=== PATIENT | male | born 1955 | race Caucasian/White ===

== ENCOUNTER 2018-03-20 02:38 | Inpatient (IN) ==
--- NOTE | 2018-03-20 02:55 | Emergency Department Note ---
Disposition Clinical Impression: Altered mental status, unspecified, Osteomyelitis, Elevated serum creatinine Disposition: Admitted As Inpatient Condition: Good Fall HPI - General Chief Complaint: ED Fall Stated Complaint: head and neck pain, fall Time Seen by Provider: 03/20/18 02:47 Source: patient, EMS Mode of arrival: EMS Limitations: altered mental status Nursing Notes Reviewed: Yes Vital Signs Reviewed: Yes - History of Present Illness HPI Narrative: 62-year-old male presents via EMS from the [facility]. Patient states that he fell asleep on a couch and he must the fell, his head hurts. Patient states the top of his head that hurts. Patient is unsure of any medical history or any medications that he is on. He states that he felt fine prior to falling. EMS reports the patient was sitting on the couch and he fell forward hitting the top of his head on the ground. EMS reports that patient does have history of falls and he has care plan to have his mattress on the floor just because of that. The [facility] did not send any medical history with patient, they did not call report. Pt Subjective Complaint: fall Onset (ago): Just [employer] Fall From: other Fall Witnessed: no (Unsure) Place Fall Occurred: home Loss of Consciousness: unsure Prolonged Down Time?: unclear Symptoms Prior to Fall: none Context: unknown Quality: aching Associated symptoms (after fall): Reports: neck pain. Denies: numbness, weakness, chest pain, shortness of breath, abdominal pain, lightheaded, vertigo - Related Data Allergies Allergy/AdvReac Type Severity Reaction Status Date / Time diazepam [From Valium] Allergy Hallucinati Verified 03/20/18 02:47 ng sertraline Allergy Hallucinati Verified 03/20/18 02:47 ng Limitations: ROS unobtainable due to patients medical condition Fall PMH - Past Medical History Medical history: Reports: no medical history Psychiatric history: Reports: no psych history - Social History Smoking Status: Current every day smoker Alcohol use: Reports: none Drug use: Reports: none Physical Exam - General Limitations: no limitations General appearance: alert, in no apparent distress - Head Head exam: atraumatic, normocephalic, normal inspection, other (Pain with palpation to the entire scalp, spares face) - Eye Eye exam: Present: normal appearance, PERRL, EOMI. Absent: scleral icterus, conjunctival injection, periorbital tenderness - ENT ENT exam: mucous membranes moist - Neck Neck exam: Present: normal inspection, tenderness (With palpation to the posterior neck). Absent: meningismus - Chest Chest inspection: Present: normal inspection, symmetric chest wall rise - Neurological Exam Neurological exam: Present: alert, oriented X3, CN II-XII intact - Expanded Neurological Exam Patient oriented to: Present: person, place Motor strength - LUE: 3/5 Motor strength - RUE: 4/5 Motor strength - LLE: 4/5 Motor strength - RLE: 3/5 Coma Scale Eye Opening: Spontaneous Coma Scale Motor Response: Obeys Commands Coma Scale Verbal Response: Confused Coma Scale Total: 14 - Psychiatric Psychiatric exam: Present: normal affect, normal mood - Skin Skin exam: Present: warm, dry, intact, normal color Course Course Narrative: Nontoxic-appearing male in no acute distress. Patient arrives via EMS in a cervical collar. Patient with tenderness to his entire scalp without step-offs, contusions, abrasions. Patient does complain of tenderness to the entire scalp. No facial tenderness. Tenderness with palpation to the posterior neck, no differentiation between paraspinal lumbar tenderness of cervical spine. Respirations are easy and even. Patient is oriented to self. He is unsure where she is he stated "they brought me here". He does note that he was at the [facility] and he fell sleep sitting on the couch but he is unsure of events afterwards. Lungs are clear, heart rate regular rhythm. Abdomen is soft and nontender. Patient does have bilateral lower extremity edema. Patient is afebrile, normotensive. EKG reveals sinus rhythm with ventricular rate of 99, no old EKG for comparison. Patient is unsure about any medical history, is unsure if he is on any anticoagulants or what kind of medication he is on. Patient without any complaints other than the pain in the top of his head. Unsure if mental status is chronic in nature as this is new, we are ensure patient is on anticoagulants. We will initiate workup, CT head and cervical spine and reevaluate. RN is currently trying to get a hold [facility] to try to get some medical history. Patient without any previous visits to our emergency depart ment. RN spoke with [facility], they do not have access at this times they are unable to provide us any history, medication list. The CT nurse that the RN spoke to was unable to give any account of patient's daily activities her mentation. They did say the patient was at the [facility] for known osteomyelitis to the left foot, diabetic foot ulcer. Past Rx shows long standing history of Morphine prescriptions with 240MME per day, pt with change of provider in October 2017--possible admission to CT at this time?. Differential wide due to lack of history. Added wound culture, blood cultures, lactic acid due to known current osteomyelitis - Reevaluation(s) Reevaluation #1: X-rays in room, the x-ray tech also works at the [facility] and states that he sees this patient had a couple times a day. He does stay patient does have a long history of falls. He does state that patient is usually very alert and talkative, is usually alert and oriented 3. During her second assessment patient is able to tell us the month and year. He does seem a little bit more alert and is answering questions. He states he has been at the [facility] for 2-3 weeks, he is originally [place] 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 He does state a history of diabetes. He states bilateral lower extremity edema has been there since December. He is unsure of any other medical history. He c ontinues to state that he was feeling at his baseline prior to the fall. Patient continues to complain of head pain, he then follows this up stating that he has had had pain for greater than 10 years. The patient does seem a little bit more alert and he is able to answer questions he does still seem partially confused. Time: 03:50 Reevaluation #2: Patient has been resting quietly. He has not been in any acute distress. Labs returned with a CBC with a hemoglobin of 11.4, there is now active signs of bleeding, coagulation labs are negative. Metabolic panel shows an elevated creatinine of 1.67, decreased GFR, lactic acid is 0.9, UA without evidence of infection. Unsure patient's baseline of labs, questioning a cane I we will start slow rehydration fluids, we will start him. Antibiotic therapy for open wound. Head CT returns unremarkable. Cervical CT reveals a 170 her thyroid nodule, no further workup recommended, no cervical spine deformity. Chest x-ray reveals mild atelectasis; left foot x-ray reveals osteomyelitis of the fifth metatarsal. The plan for admission of possible history of present illness, alteration in mental status, osteomyelitis. We will treat hospitals at this time. Time: 04:34 Reevaluation #3: Spoke with hospitalist Dr. Stoner, except as to the medical floor for possible acute kidney injury, cellulitis, altered mental status. Patient care will be transitioned to the hospitalist team at this time. Patient is agreeable plan of care. Time: 05:10 Vital Signs Temperature 98.2 F 03/20/18 02:47 Pulse Rate 93 03/20/18 02:47 Respiratory Rate 16 03/20/18 02:47 Blood Pressure 188/79 03/20/18 02:47 O2 Sat by Pulse Oximetry 93 03/20/18 02:47 Temperature 98.2 F 03/20/18 02:47 Pulse Rate 88 03/20/18 04:39 Respiratory Rate 16 03/20/18 05:39 Blood Pressure 168/78 03/20/18 05:39 O2 Sat by Pulse Oximetry 95 03/20/18 04:39 Oxygen Delivery Oxygen Delivery Room Air Fall - Lab Data Lab results reviewed: Yes I reviewed the patient's lab results. Result diagrams: 03/20/18 03:31 03/20/18 03:31 Lab Results 03/20/18 03/20/18 03/20/18 Range/Units 03:31 03:31 03:31 WBC 7.6 (4.3-11.1) K/mcL RBC 3.87 L (4.19-5.50) M/mcL Hgb 11.4 L (12.9-16.9) g/dL Hct 35.4 L (37.5-50.1) % MCV 91.5 (83.0-100.0) fL MCH 29.5 (28.0-33.3) pg MCHC 32.2 (31.6-35.5) g/dL RDW 12.5 (11.5-14.5) % Plt Count 273 (140-400) K/mcL MPV 9.7 (9.4-12.4) fL Immature Gran % 0.7 (0-4) % Seg Neutrophils % 57.0 % Lymphocytes % 24.2 % Monocytes % 12.4 % Eosinophils % 5.0 % Basophils % 0.7 % Neutrophils # 4.4 (1.6-8.9) K/mcL Lymphocytes # 1.8 (0.6-4.6) K/mcL Monocytes # 0.9 (0.0-1.3) K/mcL Eosinophils # 0.4 (0.0-0.6) K/mcL Basophils # 0.1 (0.0-0.2) K/mcL PT 11.8 (9.4-12.1) Seconds INR 1.0 APTT 36.6 H (26.0-36.0) Seconds Sodium 138 (136-145) mEq/L Potassium 5.0 (3.5-5.1) mEq/L Chloride 106 (98-107) mEq/L Carbon Dioxide 25 (23-29) mEq/L BUN 43 H (8-23) mg/dL Creatinine 1.67 H (0.70-1.30) mg/dL Est GFR ( Amer) 50 L (> 60) Est GFR (Non-Af Amer) 42 L (> 60) BUN/Creatinine Ratio 26 (6-26) Glucose 236 H (70-105) mg/dL Calculated Osmolality 304 H (280-300) Lactic Acid (0.5-2.2) mmol/L Calcium 9.1 (8.6-10.3) mg/dL Urine Color (Yellow) Urine Clarity (Clear) Urine pH (5.0-8.0) pH Units Ur Specific [place] (1.010-1.025) Urine Protein (Neg-Trace) mg/dL Urine Glucose (UA) (Normal) mg/dL Urine Ketones (Negative) mg/dL Urine Blood (Negative) Urine Nitrite (Negative) Urine Bilirubin (Negative) Urine Urobilinogen (Normal) mg/dL Ur Leukocyte Esterase (Negative) Urine Microscopic RBC (0-3) per hpf Urine Microscopic WBC (0-3) per hpf Ur Squamous Epith Cells (None-Few) per lpf Urine Bacteria (None-Few) per hpf Hyaline Casts (None-Few) per lpf Ur Culture Indicated? (NO) Salicylates < 2.5 L (15.0-30.0) mg/dL Urine Opiates Screen (Psgxrt=890) ng/mL Acetaminophen < 10 L (10-20) mcg/mL Ur Barbiturates Screen (Hxxnyt=523) ng/mL Ur Phencyclidine Scrn (Cutoff=25) ng/mL Ur Amphetamines Screen (Jwutga=2553) ng/mL U Benzodiazepines Scrn (Jdfumc=801) ng/mL Urine Cocaine Screen (Cutoff= 300) ng/mL U Marijuana (THC) Screen (Cutoff = 50) ng/mL Ur Drug Screen Interp Ethyl Alcohol < 10 (Less than 10) mg/dL 03/20/18 03/20/18 03/20/18 Range/Units 03:31 03:53 03:53 WBC (4.3-11.1) K/mcL RBC (4.19-5.50) M/mcL Hgb (12.9-16.9) g/dL Hct (37.5-50.1) % MCV (83.0-100.0) fL MCH (28.0-33.3) pg MCHC (31.6-35.5) g/dL RDW (11.5-14.5) % Plt Count (140-400) K/mcL MPV (9.4-12.4) fL Immature Gran % (0-4) % Seg Neutrophils % % Lymphocytes % % Monocytes % % Eosinophils % % Basophils % % Neutrophils # (1.6-8.9) K/mcL Lymphocytes # (0.6-4.6) K/mcL Monocytes # (0.0-1.3) K/mcL Eosinophils # (0.0-0.6) K/mcL Basophils # (0.0-0.2) K/mcL PT (9.4-12.1) Seconds INR APTT (26.0-36.0) Seconds Sodium (136-145) mEq/L Potassium (3.5-5.1) mEq/L Chloride (98-107) mEq/L Carbon Dioxide (23-29) mEq/L BUN (8-23) mg/dL Creatinine (0.70-1.30) mg/dL Est GFR ( Amer) (> 60) Est GFR (Non-Af Amer) (> 60) BUN/Creatinine Ratio (6-26) Glucose (70-105) mg/dL Calculated Osmolality (280-300) Lactic Acid 0.9 (0.5-2.2) mmol/L Calcium (8.6-10.3) mg/dL Urine Color Yellow (Yellow) Urine Clarity Clear (Clear) Urine pH 7.0 (5.0-8.0) pH Units Ur Specific [place] 1.011 (1.010-1.025) Urine Protein 30 H (Neg-Trace) mg/dL Urine Glucose (UA) 100 H (Normal) mg/dL Urine Ketones Negative (Negative) mg/dL Urine Blood Negative (Negative) Urine Nitrite Negative (Negative) Urine Bilirubin Negative (Negative) Urine Urobilinogen Normal (Normal) mg/dL Ur Leukocyte Esterase Negative (Negative) Urine Microscopic RBC 0-3 (0-3) per hpf Urine Microscopic WBC 0-3 (0-3) per hpf Ur Squamous Epith Cells None Seen (None-Few) per lpf Urine Bacteria None Seen (None-Few) per hpf Hyaline Casts None Seen (None-Few) per lpf Ur Culture Indicated? NO (NO) Salicylates (15.0-30.0) mg/dL Urine Opiates Screen Positive H (Ignkgk=609) ng/mL Acetaminophen (10-20) mcg/mL Ur Barbiturates Screen Negative (Ahdowu=745) ng/mL Ur Phencyclidine Scrn Negative (Cutoff=25) ng/mL Ur Amphetamines Screen Negative (Kjwsdz=0514) ng/mL U Benzodiazepines Scrn Negative (Vxgbva=204) ng/mL Urine Cocaine Screen Negative (Cutoff= 300) ng/mL U Marijuana (THC) Screen Negative (Cutoff = 50) ng/mL Ur Drug Screen Interp See Below Ethyl Alcohol (Less than 10) mg/dL - Radiology Data Radiology results reviewed: Yes I reviewed the patient's radiology results. Cervical Spine CT 03/20/18 02:54 IMPRESSION: No acute osseous abnormality of the cervical spine. Left thyroid lobe 1 cm nodule. No additional imaging workup suggested per guidelines below. RECOMMENDATIONS: Managing Incidental Thyroid Nodule Detected at CT or MRI or US 1. Further evaluation by thyroid Ultrasound recommended for these incidental nodules: Patient Age 35 years or more - Nodule 1.5 cm in size or greater 2. Follow up thyroid ultrasound also recommend in these scenarios - Solitary nodule with high risk imaging features (locally invasive nodule or suspicious lymph nodes) - Heterogeneous, enlarged thyroid gland. - Increased uptake on PET 3. NO further imaging is recommended in the following scenarios - Any nodule not meeting above criteria. - Those patients with limited life expectancy or significant Co-morbidities. Note: These recommendations do not apply to pts. w/ increased risk for thyroid cancer or pts. with symptomatic thyroid disease. Recommendations for f/u of Incidental Thyroid Nodules (ITN) found on CT, MR, NM and Extrathyroidal US are based upon the ACR white paper and Campos 3-tiered system for managing ITNs: J Am Anai Radiol. 2015 Jun;12(2): 143-50 D/ / Levi Haynes / Levi Haynes Interpreting Provider: Levi Haynes Head CT 03/20/18 02:54 IMPRESSION: No acute intracranial abnormality. D/ / Kirit Witt MD / Kirit Witt MD Interpreting Provider: Kirit Witt MD Chest X-Ray 03/20/18 03:05 IMPRESSION: Mild bibasilar atelectasis. D/ / Lindsay Zhou MD / Lindsay Zhou MD Interpreting Provider: Lindsay Zhou MD Foot X-Ray 03/20/18 03:30 IMPRESSION: Findings are consistent with osteomyelitis involving the left 5th metatarsal head and the base of the proximal phalanx of the 5th digit. There is septic arthritis involving the left 5th MTP joint. D/ / Lindsay Zhou MD / Lindsay Zhou MD Interpreting Provider: Lindsay Zhou MD - EKG Data EKG attestation: Yes I reviewed and interpreted this EKG. Attestation Statement - Attestation Attestation: Dr Levine note: Pt seen in conjunction w/ Midlevel Giovani Dawson; Please see his charting for complete documentation; I spent face to face time w/ the pt and I agree w/ the pt's treatment and disposition; Imaging negative for acute injury; renal fxn noted; no focal neuro signs/sx; admitted to Dr Bush in stable/improved condition;
[2018-03-20 03:44] LABS: Basophils # 0.1 K/mcL (0.0-0.2); Basophils % 0.7 %; Eosinophils # 0.4 K/mcL (0.0-0.6); Hematocrit 35.4 % (37.5-50.1); Hemoglobin 11.4 g/dL (12.9-16.9); Immature Granulocytes % 0.7 % (0-4); Lymphocytes # 1.8 K/mcL (0.6-4.6); Lymphocytes % 24.2 %; Mean Corpuscular HGB Conc 32.2 g/dL (31.6-35.5); Mean Corpuscular Hemoglobin 29.5 pg (28.0-33.3); Mean Corpuscular Volume 91.5 fL (83.0-100.0); Mean Platelet Volume 9.7 fL (9.4-12.4); Monocytes # 0.9 K/mcL (0.0-1.3); Monocytes % 12.4 %; Neutrophils # 4.4 K/mcL (1.6-8.9); Platelet Count 273 K/mcL (140-400); Red Blood Count 3.87 M/mcL (4.19-5.50); Red Cell Distribution Width 12.5 % (11.5-14.5)
[2018-03-20 04:01] LABS: Prothrombin Time 11.8 Seconds (9.4-12.1)
[2018-03-20 04:03] LABS: Bilirubin,Urine Negative (Negative); Blood,Urine Negative (Negative); Clarity,Urine Clear (Clear); Color,Urine Yellow (Yellow); Glucose,Urine (UA) 100 mg/dL (Normal); Ketones,Urine Negative (Negative); Leukocyte Esterase,Urine Negative (Negative); Nitrite,Urine Negative (Negative); Protein,Urine 30 mg/dL (Neg-Trace); Specific Gravity,Urine 1.011 (1.010-1.025); Urobilinogen,Urine Normal (Normal)
[2018-03-20 04:03] LABS: Activated Partial Thrombo Time 36.6 Seconds (26.0-36.0)
[2018-03-20 04:04] LABS: Acetaminophen < 10 mcg/mL (10-20); BUN/Creatinine Ratio 26 (6-26); Blood Urea Nitrogen 43 mg/dL (8-23); Calcium 9.1 mg/dL (8.6-10.3); Carbon Dioxide 25 mEq/L (23-29); Chloride 106 mEq/L (98-107); Ethanol < 10 mg/dL (Less than 10); Glucose 236 mg/dL (70-105); Osmolality,Calculated 304 (280-300); Salicylate < 2.5 mg/dL (15.0-30.0); Sodium 138 mEq/L (136-145); eGFR For Non-African Americans 42 (> 60)
[2018-03-20 04:05] LABS: Bacteria,Urine None Seen per hpf (None-Few); Hyaline Casts,Urine None Seen per lpf (None-Few); RBC,Urine 0-3 per hpf (0-3); Squamous Epithelial Cell,Urine None Seen per lpf (None-Few); WBC,Urine 0-3 per hpf (0-3)
[2018-03-20] MEDS ORDERED: Piperacillin/Tazobactam 3.375 GM in 0.9 % Sodium Chloride Mini Bag 100 ML IVPB ONE (04:10)
[2018-03-20] MEDS ORDERED: 0.9 % Sodium Chloride 1,000 ML IVC SCH (04:15)
[2018-03-20 04:24] LABS: Amphetamine Screen,Urine Negative ng/mL (Cutoff=1000); Barbiturate Screen,Urine Negative ng/mL (Cutoff=200); Benzodiazepines Screen,Urine Negative ng/mL (Cutoff=200); Cannabinoid Screen,Urine Negative ng/mL (Cutoff = 50); Cocaine Screen,Urine Negative ng/mL (Cutoff= 300); Opiate Screen,Urine Positive ng/mL (Cutoff=300); Phencyclidine Screen,Urine Negative ng/mL (Cutoff=25)
[2018-03-20] MEDS ORDERED: D5% in Water 1,000 ML IVC PRN (05:55)
[2018-03-20] MEDS ORDERED: Acetaminophen 325 MG TABLET PO PRN (05:55)
[2018-03-20] MEDS ORDERED: Dextrose Gel 15 GM/37.5 ML TUBE PO PRN ×2 (05:55)
[2018-03-20] MEDS ORDERED: Naloxone 0.4 MG/ML INJ IVP PRN (05:55)
[2018-03-20] MEDS ORDERED: *HR* Dextrose 50 % in Water (Syg) 50 ML SYRINGE IVP PRN (05:55)
--- NOTE | 2018-03-20 06:10 | Internal Med History&Physical ---
Date of Encounter: 03/20/18 Time of Encounter: 05:40 Internal Medicine - H&P: HPI Chief complaint: s/p fall Admitted From: Emergency Dept Plans for Post Hospital Care: Transfer Other History of present illness: Mr. Callahan is a 62 year old male who was transferred from the [facility] by EMS after a fall and possibly injuring himself on the inpatient unit. There were no records sent with patient and patient is confused, disoriented, and somnolent. As such, essentially no [facility]. The ER staff nurse contacted the [facility] asking for more information, medication list, and any pertinent medical records. Unfortunately, their computers are down at the [facility], and they were unable to provide any information other than the fact that he was admitted for diabetic foot ulcer and osteomyelitis of his foot. He also reportedly was on chronic opiate pain meds but no med list was available due to their computers being down. In the ER, patient had imaging and clearance of the C-spine. CT of the head was negative. Routine labs were performed, and he was admitted to hospital service for further workup and care of his syncope/fall/osteomyelitis of his foot. Upon my assessment of the patient in the ER, patient is somnolent but easily arousable. He is oriented to self only and occasionally to place. He does not know why he is here. He does not know why he was at the [facility]. He does admit to having diabetes. I can obtain no further information from him. He is not aware of time, date, season, or situation. I am unsure if this is his baseline or altered. Past Med Surg Social Fam HX - Past Medical History Source: other (very limited information from discussion with ER staff) Medical history: diabetes Additional medical history: unknown - Past Surgical History Surgical History: other (foot surgery; unknown other surgeries) - Social History Smoking Status: Current every day smoker Smokeless Tobacco Status: No Alcohol use: none Drug use: none - Family History Mother History Unknown: Yes Father History Unknown: Yes Internal Medicine - H&P: Meds Allergy/AdvReac Type Severity Reaction Status Date / Time diazepam [From Valium] Allergy Hallucinati Verified 03/20/18 02:47 ng sertraline Allergy Hallucinati Verified 03/20/18 02:47 ng ROS unobtainable: due to mental status - Constitutional Vitals: Temp Pulse Resp BP Pulse Ox 98.2 F 88 16 168/78 95 03/20/18 02:47 03/20/18 04:39 03/20/18 05:39 03/20/18 05:39 03/20/18 04:39 General appearance: Present: A&O X 1, disheveled Exam: somnolent, easily arousable, oriented to self only - Head Head exam: Present: atraumatic, normal inspection Additional comments: no palpable crepitus, pain, or noticeable scalp lesion - Eye Eye exam: Present: EOMI, PERRL. Absent: scleral icterus Pupils: Present: normal accommodation - ENT ENT exam: Present: mucous membranes dry, normal exam, normal oropharynx - Neck Neck exam general surgery: Present: full ROM, supple. Absent: tenderness, nuchal rigidity, thyromegaly - Respiratory Respiratory exam: Present: rhonchi. Absent: chest wall tenderness, rales, respiratory distress, wheezes, tachypnea - Cardiovascular Cardiovascular exam: Present: RRR, +S1, +S2. Absent: diastolic murmur, systolic murmur - GI/Abdominal GI/Abdominal exam: Present: normal bowel sounds, soft. Absent: guarding, hepatomegaly, mass, rebound, splenomegaly, tenderness - Extremities Exam Extremities exam: Present: normal capillary refill, warm, radial pulses palpable and symmetrical. Absent: calf tenderness, joint swelling, pedal edema, tenderness Additional comments: left foot ulcer/lesion dressed and wrapped - Back Exam Back exam: Absent: CVA tenderness (L), CVA tenderness (R) - Neurological Exam Neurological exam: Present: altered, no focal deficits, strengths equal and symetr throughout Additional comments: somnolent but responds appropriately; oriented to self only though - Psychiatric Psychiatric exam: Present: flat affect - Skin Skin exam: Present: dry, intact, warm Internal Med - H&P Results - Labs CBC & Chem 7: 03/20/18 03:31 03/20/18 03:31 Labs: Short CBC 03/20/18 Range/Units 03:31 WBC 7.6 (4.3-11.1) K/mcL Hgb 11.4 L (12.9-16.9) g/dL Hct 35.4 L (37.5-50.1) % Plt Count 273 (140-400) K/mcL Neutrophils # 4.4 (1.6-8.9) K/mcL BMP 03/20/18 03:31 Sodium 138 Potassium 5.0 Chloride 106 Carbon Dioxide 25 BUN 43 H Creatinine 1.67 H Glucose 236 H Calcium 9.1 Urine 03/20/18 Range/Units 03:53 Urine Color Yellow (Yellow) Urine Clarity Clear (Clear) Urine pH 7.0 (5.0-8.0) pH Units Ur Specific [place] 1.011 (1.010-1.025) Urine Protein 30 H (Neg-Trace) mg/dL Urine Glucose (UA) 100 H (Normal) mg/dL - Impressions ITS Impressions Cervical Spine CT 03/20/18 02:54 IMPRESSION: No acute osseous abnormality of the cervical spine. Left thyroid lobe 1 cm nodule. No additional imaging workup suggested per guidelines below. RECOMMENDATIONS: Managing Incidental Thyroid Nodule Detected at CT or MRI or US 1. Further evaluation by thyroid Ultrasound recommended for these incidental nodules: Patient Age 35 years or more - Nodule 1.5 cm in size or greater 2. Follow up thyroid ultrasound also recommend in these scenarios - Solitary nodule with high risk imaging features (locally invasive nodule or suspicious lymph nodes) - Heterogeneous, enlarged thyroid gland. - Increased uptake on PET 3. NO further imaging is recommended in the following scenarios - Any nodule not meeting above criteria. - Those patients with limited life expectancy or significant Co-morbidities. Note: These recommendations do not apply to pts. w/ increased risk for thyroid cancer or pts. with symptomatic thyroid disease. Recommendations for f/u of Incidental Thyroid Nodules (ITN) found on CT, MR, NM and Extrathyroidal US are based upon the ACR white paper and Campos 3-tiered system for managing ITNs: J Am Anai Radiol. 2015 Jun;12(2): 143-50 D/ / Levi Haynes / Levi Haynes Interpreting Provider: Levi Haynes Head CT 03/20/18 02:54 IMPRESSION: No acute intracranial abnormality. D/ / Kirit Witt MD / Kirit Witt MD Interpreting Provider: Kirit Witt MD Chest X-Ray 03/20/18 03:05 IMPRESSION: Mild bibasilar atelectasis. D/ / Lindsay Zhou MD / Lindsay Zhou MD Interpreting Provider: Lindsay Zhou MD Foot X-Ray 03/20/18 03:30 IMPRESSION: Findings are consistent with osteomyelitis involving the left 5th metatarsal head and the base of the proximal phalanx of the 5th digit. There is septic arthritis involving the left 5th MTP joint. D/ / Lindsay Zhou MD / Lindsay Zhou MD Interpreting Provider: Lindsay Zhou MD - Diagnostic Studies Chest x-ray Status: image reviewed by me (negative) - Assessment and plan (1) Altered mental status, unspecified Current Visit: Yes Status: Acute Assessment and plan: 1. [facility] sent no records and patient is somnolent, disoriented. 2. Will monitor closely and follow glucose levels. 3. Will ask day team to contact [facility] for med list and medical records. 4. Minimize medication effect once med list is available. Qualifiers: Altered mental status type: disorientation Qualified Code(s): R41.0 - Disorientation, unspecified (2) Elevated serum creatinine Current Visit: Yes Status: Acute Assessment and plan: 1. Not sure if this is baseline or EMMIE. 2. Will hydrate gingerly with IVF and monitor renal function. 3. Consult nephrology if does not improve. (3) Osteomyelitis Current Visit: Yes Status: Chronic Assessment and plan: 1. Blood cultures obtained in ER. 2. Will place on Vancomycin and Zosyn for now. 3. Consult Podiatry. 4. [facility]. Qualifiers: Osteomyelitis type: other acute Osteomyelitis location: foot Laterality: left Qualified Code(s): M86.172 - Other acute osteomyelitis, left ankle and foot (4) IDDM (insulin dependent diabetes mellitus) Current Visit: Yes Status: Acute Assessment and plan: 1. Will place on SSI and monitor glucose closely. 2. Verify home meds with [facility].. (5) DVT prophylaxis Current Visit: Yes Status: Acute Assessment and plan: 1. Heparin SQ.
[2018-03-20] MEDS: *HR* Heparin 5,000 UNIT/ML VIAL SQ SCH ×2 (06:41→19:30)
[2018-03-20] MEDS: 0.9 % Sodium Chloride 1,000 ML IVC SCH (06:41)
--- NOTE | 2018-03-20 08:24 | Event Note ---
Date of Encounter: 03/20/18 Time of Encounter: 08:10 Patient seen and evaluated at bedside. AOx4. In moderate distress due to neck pain. I was called by the nurse to evaluate the patient after they found him on the floor, the patient was using the bedside commode and fell. Reported hitting his head. Physical exam: General: Patient is alert, oriented x4, in acute distress due to neck pain, speaks in full sentences Head: atraumatic, normocephalic, Eye: normal appearance, PERRL, no scleral icterus, no conjunctival injection ENT: mucous membranes moist, normal external ear exam Neck: normal inspection, trachea midline, full ROM, no carotid bruits Respiratory: Good respiratory effort. Breath sounds are clear to auscultation bilaterally, no wheezing rales or crackles. Cardiovascular: RRR, normal s1 and s2, No rubs, gallops, or murmors. Abdomen: Bowel sounds present normoactive x-4 quadrants. Abdomen is soft, nondistended. No guarding or rebound. No organomegaly noted, Musculoskeletal: Spontaneously moving all extremities. no edema, no calf tenderness Skin: warm, dry, intact. Neuro: CN II-XII intact. Sensation light touch intact. Not aphasic, gait is unsteady, rapid hand movements intact, aifndw-of-[id number] intact, Psych: Patient's affect is normal Assessment and plan: 1. Frequent falls unclear etiology r/o cerebellar stroke 2. Osteomyelitis of the left 5th metatarsal head 3. Septic arthritis of the left 5th MTP joint 4. Diabetes 6. HTN 7. VTE prophylaxis 8. Cervical radiculopathy 9. EMMIE possible on CKD 10. anemia Plan Pattern Changer consulted On broad spectrum antibiotics on Vancomycin pharmacy dosing and piperacillin/Tazobactam Pain control with tramadol 50mg/PO Q6HR PRN Will repeat head CT in the event of recent fall MRI of the brain w/o contrast to r/o CVA neurology consulted Bedside swallow evaluation IV hydradation with 0.95%NS@75msl/hr insulin levemir and lispro heparin 5000 units SubQ BID for DVT prophylaxis Lipid panel, Hemogolbin A1c ESR , CRP CPK Wound consult moore cultured. check for orthostatic hypotension
[2018-03-20] MEDS: Insulin LISPRO 300 UNITS/3 ML VIAL SQ SCH ×3 (09:11→17:04)
[2018-03-20] MEDS: Aspirin Enteric Coated 81 MG Tablet PO SCH (09:11)
[2018-03-20] MEDS: Insulin DETEMIR 100 UNIT/ML X5UNITS SQ SCH ×2 (09:12→20:58)
[2018-03-20] MEDS: Piperacillin/Tazobactam 3.375 GM in 0.9 % Sodium Chloride Mini Bag 100 ML IVPB SCH ×2 (11:45→20:57)
--- NOTE | 2018-03-20 12:43 | Neurology - Consult Note ---
Date of Encounter: 03/20/18 Time of Encounter: 12:37 Assessment and Plan (1) Altered mental status, unspecified Current Visit: Yes Status: Acute So patient has a fall and was found to be disoriented. CT of head showed no acute intracranial abnormality. So far patient;s major complain is headache but vitals are normal. He does not seem to have focal weakness and no speech difficulty although the examination was limited due to drowsiness and presence o f pain. Laboratory studies remarkable for elevated creatinine level which can certainly cause metabolic encephalopathy and confusion. Due to his complicated medical history would be appropriated to get MRI of brain to rule out embolic stroke which can be missed on CT of head. If MRI of brain returns positive then a full stroke work up is needed. Please continue medical and supportive care. Qualifiers: Altered mental status type: disorientation Qualified Code(s): R41.0 - Disorientation, unspecified History of Present Illness Chief complaint: fall and somnolence HPI: Mr. Callahan is a 62 year old male with PMH significant for who developed a fall and developed altered mental status. He was at [facility] inpatient for unknown reason and it was reported that he had a fall and was disoriented. He was transferred here for further evaluation. Currently patient is half sitting in the bed drowsy but easily arousable. He knew he is at [facility]. Then he says that his head hurt. After asking few questions, he says 'head hurts that's all', indicating that there is need for further examination? he is able to squeeze hand bilaterally. He is able to wiggle his toes bilaterally but unable to lift the legs off the bed. He is comprehensive. Past Med Surg Social Fam HX - Past Medical History Medical history: no medical history Additional medical history: unknown Psychiatric history: no psych history - Past Surgical History Surgical History: other (foot surgery; unknown other surgeries) Additional surgical history: tonsillectomy, tubes in ears (1982), gallbladder removal - Social History Smoking Status: Current every day smoker Packs per day: 1/2 Smokeless Tobacco Status: No Alcohol use: none Drug use: none - Family History Mother Family Member Ethnicity: Non- Living Status: Still Living Hx Family Cardiac Disorders: Yes (heart disease) Hx Family Endocrine Disorder: Yes (DM) Hx Family Psychosocial Disorders: Yes Father Family Member Ethnicity: Non- Living Status: Still Living Hx Family Endocrine Disorder: Yes (DM) Medications and Allergies Albuterol Sulfate [Proair Hfa] 2 puff IH TID PRN 03/20/18 [History] Aloe Vera/Collagen [Aloe [place] Cleansing Foam] 1 applic TP DAILY 03/20/18 [History] Atorvastatin [Lipitor] 20 mg PO HS 03/20/18 [History] BuPROPion [Wellbutrin] 100 mg PO DAILY 03/20/18 [History] Cholecalciferol (D-3) [Vitamin D] 1,000 unit PO DAILY 03/20/18 [History] Cyanocobalamin (B-12) [Vitamin B12] 1,000 mcg PO DAILY 03/20/18 [History] Furosemide [Lasix] 20 mg PO Q48H 03/20/18 [History] Gabapentin [Neurontin] 1,200 mg PO TID 03/20/18 [History] Insulin Glargine,Hum.rec.anlog [Lantus Solostar] 35 unit SQ HS 03/20/18 [Histor y] Lisinopril [Zestril] 2.5 mg PO DAILY 03/20/18 [History] Metformin HCl [Glucophage] 1,000 mg PO BID 03/20/18 [History] Metoprolol Succinate 25 mg PO DAILY 03/20/18 [History] Multivitamin [One Daily Essential] 1 each PO DAILY 03/20/18 [History] Potassium Chloride [Klor-Con 10] 10 meq PO Q48H 03/20/18 [History] Tiotropium [Spiriva] 2 puff IH QAM 03/20/18 [History] Allergy/AdvReac Type Severity Reaction Status Date / Time diazepam [From Valium] Allergy Hallucinati Verified 03/20/18 02:47 ng sertraline Allergy Hallucinati Verified 03/20/18 02:47 ng All Systems: The remainder of the systems were reviewed and are negative Physical Examination - Vital Signs Vital Signs: Initial Vital Signs Temp Pulse Resp BP Pulse Ox 98.2 F 93 16 188/79 93 03/20/18 02:47 03/20/18 02:47 03/20/18 02:47 03/20/18 02:47 03/20/18 02:47 - Constitutional General appearance: chronically ill - Neurologic Sensorimotor examination: other (Difficult to assess, but does have color changes to his lower legs and may have stocking pattern of sensory loss) Motor examination - right side: 4/5: toe extension (EHL), plantarflexion, 5/5: w rist extension, alteration tailor Motor examination - left side: 4/5: toe extension (EHL), plantarflexion, 5/5: wrist extension, alteration tailor Detailed sensory examination: other (As above, difficult to assess) Posture: other (Has scoliosis and head drop, painful to passively move his head) Reflexes: Biceps: 0, Triceps: 0, Brachioradialis: 0, Patella: 0, Achilles: 0 Mental Status Examination: oriented to person, oriented to place, no agnosia, drowsy (Easilry arousable. Comprehensive and able to tell his head hurts. ), opens eyes to voice, makes eye contact, follows simple commands Cranial nerve examination: PERRL, EOMI (Eye movements showed right eye ophtalmoplegia but denies diplopia. When asseeing eye movement, patient says 'head hurts that's all'), visual wiseman intact (Unable to assess), corneal reflexes brisk symmetrically, sensory to face intact, mastication intact, no facial asymmetry is present, no dysarthria, hearing is intact symmetrically, soft palate elevates bilaterally upon phonation (Unable to assess), gag reflex intact, flexes SCM and trapezius muscles symmetrically with full power, tongue protrudes midline, no atrophy or facial fasiculations present Results - Laboratory Findings CBC and BMP: 03/20/18 03:31 03/20/18 03:31 Abnormal lab findings: Abnormal lab results RBC 3.87 M/mcL (4.19-5.50) L 03/20/18 03:31 Hgb 11.4 g/dL (12.9-16.9) L 03/20/18 03:31 Hct 35.4 % (37.5-50.1) L 03/20/18 03:31 APTT 36.6 Seconds (26.0-36.0) H 03/20/18 03:31 BUN 43 mg/dL (8-23) H 03/20/18 03:31 Creatinine 1.67 mg/dL (0.70-1.30) H 03/20/18 03:31 Est GFR ( Amer) 50 (> 60) L 03/20/18 03:31 Est GFR (Non-Af Amer) 42 (> 60) L 03/20/18 03:31 Glucose 236 mg/dL (70-105) H 03/20/18 03:31 Calculated Osmolality 304 (280-300) H 03/20/18 03:31 Urine Protein 30 mg/dL (Neg-Trace) H 03/20/18 03:53 Urine Glucose (UA) 100 mg/dL (Normal) H 03/20/18 03:53 Salicylates < 2.5 mg/dL (15.0-30.0) L 03/20/18 03:31 Urine Opiates Screen Positive ng/mL (Napxek=602) H 03/20/18 03:53 Acetaminophen < 10 mcg/mL (10-20) L 03/20/18 03:31 - Diagnostic Findings Additional findings: CT OF THE HEAD WITHOUT CONTRAST 03/20/2018 3:27 am TECHNIQUE: CT of the head was performed without the administration of intravenous contrast. Dose modulation, iterative reconstruction, and/or weight based adjustment of the mA/kV was utilized to reduce the radiation dose to as low as reasonably achievable. COMPARISON: None. HISTORY: ORDERING SYSTEM PROVIDED HISTORY: fall on head Acute headache status post fall hitting head today FINDINGS: BRAIN/VENTRICLES: There is no acute intracranial hemorrhage, mass effect or midline shift. No abnormal extra-axial fluid collection. The harper-white differentiation is maintained without evidence of an acute infarct. There is no evidence of hydrocephalus. ORBITS: The visualized portion of the orbits demonstrate no acute abnormality. SINUSES: The visualized paranasal sinuses and mastoid air cells demonstrate no acute abnormality. SOFT TISSUES/SKULL: No acute abnormality of the visualized skull or soft tissues. CT/CT head/brain wo con IMPRESSION: No acute intracranial abnormality. D/ / Kirit Witt MD / Kirit Witt MD Interpreting Provider: Kirit Witt MD RING SYSTEM PROVIDED HISTORY: fall on head FINDINGS: BONES/ALIGNMENT: There is no evidence of an acute cervical spine fracture. There is normal alignment of the cervical spine. DEGENERATIVE CHANGES: Moderate cervical spondylosis. Atlantodental degenerative changes noted. SOFT TISSUES: There is no prevertebral soft tissue swelling. Vascular calcifications are present. Left thyroid lobe [address]/CT cervical spine wo con IMPRESSION: No acute osseous abnormality of the cervical spine. Left thyroid lobe 1 cm nodule. No additional imaging workup suggested per guidelines below. RECOMMENDATIONS: Managing Incidental Thyroid Nodule Detected at CT or MRI or US 1. Further evaluation by thyroid Ultrasound recommended for these incidental nodules: Patient Age 35 years or more - Nodule 1.5 cm in size or greater 2. Follow up thyroid ultrasound also recommend in these scenarios - Solitary nodule with high risk imaging features (locally invasive nodule or suspicious lymph nodes) - Heterogeneous, enlarged thyroid gland. - Increased uptake on PET 3. NO further imaging is recommended in the following scenarios - Any nodule not meeting above criteria. - Those patients with limited life expectancy or significant Co-morbidities. Note: These recommendations do not apply to pts. w/ increased risk for thyroid cancer or pts. with symptomatic thyroid disease. Recommendations for f/u of Incidental Thyroid Nodules (ITN) found on CT, MR, NM and Extrathyroidal US are based upon the ACR white paper and Campos 3-tiered system for managing ITNs: J Am Anai Radiol. 2015 Jun;12(2): 143-50 D/ / Levi Haynes / Levi Haynes Interpreting Provider: Levi Haynes Consult Discharge Plan - Plan [facility]errals: [facility] [Primary Care Provider] -
--- NOTE | 2018-03-20 13:06 | Podiatry Consult Note ---
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 Discussed his ulcer and bone infection which is present and he says he knows he has a bone infection in the [facility] was treating it with IV antibiotics. He says that it is getting better. I told him it does not look good and would recommend surgery to remove infected bone and possibly amputate the toe and bone behind the toe which contain the infected bone to give him the best chance of salvaging his left foot. He says he does not want surgery on the foot now or anytime soon. He says he may consider it if his [facility] treatment fails. I told him that I think he should have surgery but he again refuses. I did discuss with him that he could develop worsening bone infection or soft tissue infection that could cause him to lose more of his foot or his leg or his life. Patient says he understands. He can continue his treatment at the [facility]. Nurse put wound care orders in for gentamicin and Santyl 50/50 mix while here and then whatever woundcare the [facility] is doing for him when they follow up with him. Bandage to be changed daily while here and until he gets back for an appt with the [facility] for his [facility]. He can [facility]up at the [facility] as he currently does for the wound. Podiatry will sign off as patient wants no surgical intervention. Qualifiers: Osteomyelitis type: other acute Osteomyelitis location: foot Laterality: left Qualified Code(s): M86.172 - Other acute osteomyelitis, left ankle and foot History of Present Illness HPI: Mr. Callahan is a 62 year old diabetic male who is here s/p fall. He is arousable and says he understands me when I talk to him. No family members or lay people bedside. He says the wound on the outside of the left foot has been present december and he is being [facility]. He says he was told the foot is getting better with antibiotics. He says they treat it with woundcare at the [facility]. Podiatry consulted for evaluation. Past Med Surg Social Fam HX - Past Medical History Medical history: no medical history Additional medical history: unknown Psychiatric history: no psych history - Past Surgical History Surgical History: other (foot surgery; unknown other surgeries) Additional surgical history: tonsillectomy, tubes in ears (1982), gallbladder removal - Social History Smoking Status: Current every day smoker Packs per day: 1/2 Smokeless Tobacco Status: No Alcohol use: none Drug use: none - Family History Mother Family Member Ethnicity: Non- Living Status: Still Living Hx Family Cardiac Disorders: Yes (heart disease) Hx Family Endocrine Disorder: Yes (DM) Hx Family Psychosocial Disorders: Yes Father Family Member Ethnicity: Non- Living Status: Still Living Hx Family Endocrine Disorder: Yes (DM) Medications and Allergies Albuterol Sulfate [Proair Hfa] 2 puff IH TID PRN 03/20/18 [History] Aloe Vera/Collagen [Aloe [place] Cleansing Foam] 1 applic TP DAILY 03/20/18 [History] Atorvastatin [Lipitor] 20 mg PO HS 03/20/18 [History] BuPROPion [Wellbutrin] 100 mg PO DAILY 03/20/18 [History] Cholecalciferol (D-3) [Vitamin D] 1,000 unit PO DAILY 03/20/18 [History] Cyanocobalamin (B-12) [Vitamin B12] 1,000 mcg PO DAILY 03/20/18 [History] Furosemide [Lasix] 20 mg PO Q48H 03/20/18 [History] Gabapentin [Neurontin] 1,200 mg PO TID 03/20/18 [History] Insulin Glargine,Hum.rec.anlog [Lantus Solostar] 35 unit SQ HS 03/20/18 [History] Lisinopril [Zestril] 2.5 mg PO DAILY 03/20/18 [History] Metformin HCl [Glucophage] 1,000 mg PO BID 03/20/18 [History] Metoprolol Succinate 25 mg PO DAILY 03/20/18 [History] Multivitamin [One Daily Essential] 1 each PO DAILY 03/20/18 [History] Potassium Chloride [Klor-Con 10] 10 meq PO Q48H 03/20/18 [History] Tiotropium [Spiriva] 2 puff IH QAM 03/20/18 [History] Allergy/AdvReac Type Severity Reaction Status Date / Time diazepam [From Valium] Allergy Hallucinati Verified 03/20/18 02:47 ng sertraline Allergy Hallucinati Verified 03/20/18 02:47 ng All Systems Reviewed: The remainder of the systems were reviewed and are negative - Constitutional Constitutional: frequent falls, weakness, no fever(s) - Cardiovascular Cardiovascular: no chest pain - Respiratory Respiratory: no dyspnea - Musculoskeletal Musculoskeletal: muscle weakness, numbness Physical Exam - Constitutional Vitals: Temp Pulse Resp BP Pulse Ox 99.2 F 91 16 112/56 96 03/20/18 10:37 03/20/18 10:37 03/20/18 10:37 03/20/18 10:37 03/20/18 10:37 Exam: well developed male in no acute distress CFT < 3 sec x 5 digits left foot. left foot warm to touch. mild edema of the lateral foot. no erythema of the lateral foot. ulceration [id number] with a fibrotic base without evidence of drainage or fluctuance. no pain elicited with 5th MTP joint ROM. no pain with palpation of ulceration site. unable to perform manual muscle testing. diminished protective sensation. xray: destructive changes consistent with osteomyelitis of the 5th metatarsal and proximal phalanx left foot Results - Labs Result Diagrams: 03/20/18 03:31 03/20/18 03:31 Labs: Abnormal lab results RBC 3.87 M/mcL (4.19-5.50) L 03/20/18 03:31 Hgb 11.4 g/dL (12.9-16.9) L 03/20/18 03:31 Hct 35.4 % (37.5-50.1) L 03/20/18 03:31 APTT 36.6 Seconds (26.0-36.0) H 03/20/18 03:31 BUN 43 mg/dL (8-23) H 03/20/18 03:31 Creatinine 1.67 mg/dL (0.70-1.30) H 03/20/18 03:31 Est GFR ( Amer) 50 (> 60) L 03/20/18 03:31 Est GFR (Non-Af Amer) 42 (> 60) L 03/20/18 03:31 Glucose 236 mg/dL (70-105) H 03/20/18 03:31 Calculated Osmolality 304 (280-300) H 03/20/18 03:31 Urine Protein 30 mg/dL (Neg-Trace) H 03/20/18 03:53 Urine Glucose (UA) 100 mg/dL (Normal) H 03/20/18 03:53 Salicylates < 2.5 mg/dL (15.0-30.0) L 03/20/18 03:31 Urine Opiates Screen Positive ng/mL (Kmfmaw=182) H 03/20/18 03:53 Acetaminophen < 10 mcg/mL (10-20) L 03/20/18 03:31 H & H 03/20/18 Range/Units 03:31 Hgb 11.4 L (12.9-16.9) g/dL Hct 35.4 L (37.5-50.1) % All other labs normal. Consult Discharge Plan - Plan [facility]errals: [facility] [Primary Care Provider] -
[2018-03-20] MEDS: Gentamicin Oint 15 GM TUBE TP SCH (17:04)
[2018-03-20] MEDS ORDERED: MORPHINE SULFATE 30 MG PO PRN (18:49)
[2018-03-20] MEDS: *HR* Morphine Immed Rel 30 MG TABLET PO PRN (21:59)
[2018-03-21] MEDS: 0.9 % Sodium Chloride 1,000 ML IVC SCH (01:26)
[2018-03-21 04:47] LABS: Basophils % 0.5 %; Eosinophils # 0.2 K/mcL (0.0-0.6); Eosinophils % 2.9 %; Hematocrit 31.9 % (37.5-50.1); Hemoglobin 10.3 g/dL (12.9-16.9); Immature Granulocytes % 0.3 % (0-4); Lymphocytes # 1.9 K/mcL (0.6-4.6); Lymphocytes % 25.6 %; Mean Corpuscular HGB Conc 32.3 g/dL (31.6-35.5); Mean Corpuscular Hemoglobin 29.4 pg (28.0-33.3); Mean Corpuscular Volume 91.1 fL (83.0-100.0); Mean Platelet Volume 9.7 fL (9.4-12.4); Monocytes # 0.8 K/mcL (0.0-1.3); Monocytes % 10.1 %; Neutrophils # 4.6 K/mcL (1.6-8.9); Platelet Count 236 K/mcL (140-400); Red Cell Distribution Width 12.6 % (11.5-14.5); Segmented Neutrophils % 60.6 %
[2018-03-21] MEDS: *HR* Heparin 5,000 UNIT/ML VIAL SQ SCH ×2 (04:49→18:44)
[2018-03-21] MEDS: Piperacillin/Tazobactam 3.375 GM in 0.9 % Sodium Chloride Mini Bag 100 ML IVPB SCH ×3 (04:49→19:56)
[2018-03-21 05:04] LABS: Alanine Aminotransferase 9 Units/L (7-52); Albumin 3.1 g/dL (3.5-5.7); Alkaline Phosphatase 94 Units/L (34-104); Aspartate Amino Transferase 13 Units/L (13-39); BUN/Creatinine Ratio 21 (6-26); Bilirubin,Total 0.4 mg/dL (0.3-1.0); Blood Urea Nitrogen 30 mg/dL (8-23); C-Reactive Protein 12 mg/L (Less than 10); Calcium 8.6 mg/dL (8.6-10.3); Carbon Dioxide 24 mEq/L (23-29); Chloride 112 mEq/L (98-107); Chol/HDL Ratio 4.1 (0-4.9); Cholesterol 94 mg/dL (< 200); Creatine Kinase 108 Units/L (30-223); Glucose 139 mg/dL (70-105); HDL Cholesterol 23 mg/dL (40-59); LDL Cholesterol,Calculated 42 mg/dL (0-99); Magnesium 1.6 mg/dL (1.6-2.6); Osmolality,Calculated 300 (280-300); Sodium 141 mEq/L (136-145); Total Protein 6.1 g/dL (6.4-8.9); Triglycerides 146 mg/dL (< 150); Vancomycin,Trough 13 mcg/mL (5-10); eGFR For Non-African Americans 51 (> 60)
[2018-03-21] MEDS ORDERED: Ipratropium/Albuterol Neb 3 ML IH PRN (07:23)
[2018-03-21] MEDS ORDERED: Aminoglycoside Consult 1 EACH MC ONE (07:36)
[2018-03-21] MEDS: Insulin LISPRO 300 UNITS/3 ML VIAL SQ SCH ×3 (07:42→16:19)
[2018-03-21] MEDS: Metoprolol XL (24 HR) Succ 25 MG TAB.ER.24H PO SCH (07:49)
[2018-03-21] MEDS: *HR* Morphine Sulfate SR (12 HR) 15 MG TABLET.ER PO SCH (07:49)
[2018-03-21] MEDS: Aspirin Enteric Coated 81 MG Tablet PO SCH (07:49)
[2018-03-21] MEDS: Gentamicin Oint 15 GM TUBE TP SCH (07:49)
[2018-03-21] MEDS: Insulin DETEMIR 100 UNIT/ML X5UNITS SQ SCH ×2 (07:50→19:57)
--- NOTE | 2018-03-21 08:09 | Internal Med Progress Note ---
Hospitalist Progress Note - Encounter Date of Encounter: 03/21/18 Time of Encounter: 08:06 - Subjective Interval History: Patient seen and evaluated at bedside. reports that he is still having back, neck and head pain. denies dizziness, lightheadedness or shortness of breath. reports mild pain in the left foot. Reported that he has been getting out of bed to urinate and has not fall or felt unsteady. - Exam Vitals: Temp Pulse Resp BP Pulse Ox 97.8 F 87 16 154/76 95 03/21/18 06:30 03/21/18 06:30 03/21/18 06:30 03/21/18 06:30 03/21/18 06:30 Exam: Physical exam: General: Patient is alert, oriented x4, in acute distress due to neck pain and back pain Head: atraumatic, normocephalic, Eye: normal appearance, PERRL, no scleral icterus, no conjunctival injection ENT: mucous membranes moist, normal external ear exam Respiratory: Breath sounds are clear to auscultation bilaterally, no wheezing rales or crackles. Cardiovascular: RRR, normal s1 and s2, No rubs, gallops, or murmors. Abdomen: Bowel sounds present normoactive x-4 quadrants. Abdomen is soft, nondistended. No guarding or rebound. No organomegaly noted, Musculoskeletal: Spontaneously moving all extremities. no edema, no calf tenderness Neuro: CN II-XII intact. Not aphasic. Psych: Patient's affect is normal - Assessment and Plan (1) Frequent falls Current Visit: Yes Status: Acute Assessment and Plan: reason for frequent falls unclear. Plan Folate, b12 ordered MRI of the brain to r/o CVA has been ordered Neurology has been consulted Daily PT/OT (2) Osteomyelitis Current Visit: Yes Status: Chronic Assessment and Plan: Osteomyelitis of the left 5th metatarsal head Plan Continue broad spectrum antibiotics coverage On vancomycin per pharmacy dosing pipperacillin/tazobactam ID has been consulted as patient will need a prolong antibiotic course [employer] consulted recommended surgical intervention but patient refused. On morphine 2mg/IV Q4HR PRN for pain control Wound care consulted, will follow recommendations (3) IDDM (insulin dependent diabetes mellitus) Current Visit: Yes Status: Acute Assessment and Plan: Blood sugar well controlled. Plan continue levemir 10 units BID Carb controlled diet Lispro low dose sliding scale ac (4) Acute kidney injury superimposed on CKD Current Visit: Yes Status: Chronic Assessment and Plan: Avoid nephrotoxic medications (5) HTN (hypertension) Current Visit: Yes Status: Chronic Assessment and Plan: BP well controlled. Plan On metoprolol 25mg/PO daily started on his home dose of furosemide 20mg/PO Q48HRs hydralazine 5mg/IV Q6HR PRN for SBP >190 (6) Altered mental status, unspecified Current Visit: Yes Status: Resolved DVT Prophylaxis: On heparin 5000 units subcutaneous twice a day. - Summary of Assessment and Plan Summary of Assessment and Plan: Patient to remain in the hospital pending ID consult and to complete neuro work up for frequent falls. - Time Spent with Patient Total time spent is greater than 50% in coordination of care (as documented) at patient's floor/unit and/or counseling patient: Greater than 35 minutes (45) Plan of Care Discussed with: patient (and the nurse.) Internal Medicine: Result - Labs CBC & Chem 7: 03/21/18 04:31 03/21/18 04:31 Labs: Short CBC 03/21/18 Range/Units 04:31 WBC 7.6 (4.3-11.1) K/mcL Hgb 10.3 L (12.9-16.9) g/dL Hct 31.9 L (37.5-50.1) % Plt Count 236 (140-400) K/mcL Neutrophils # 4.6 (1.6-8.9) K/mcL BMP 03/21/18 04:31 Sodium 141 Potassium 5.0 Chloride 112 H Carbon Dioxide 24 BUN 30 H Creatinine 1.40 H Glucose 139 H Calcium 8.6 Liver Function 03/21/18 Range/Units 04:31 Total Bilirubin 0.4 (0.3-1.0) mg/dL AST 13 (13-39) Units/L ALT 9 (7-52) Units/L Alkaline Phosphatase 94 (34-104) Units/L Albumin 3.1 L (3.5-5.7) g/dL - ABG Interpretation ABG results: PT/INR, D-dimer PT 11.8 Seconds (9.4-12.1) 03/20/18 03:31 - Impressions Impressions Foot X-Ray 03/20/18 03:30 IMPRESSION: Findings are consistent with osteomyelitis involving the left fifth metatarsal head and the base of the proximal phalanx of the fifth digit. There is septic arthritis involving the left fifth MTP joint. D/ / 03/20/2018 08:37:55 Lindsay Zhou MD / jerardo Interpreting Provider: Lindsay Zhou MD Head CT 03/20/18 07:46 IMPRESSION: Stable CT head. No acute intracranial abnormality. D/ / Ryan Aguiar / Ryan Aguiar Interpreting Provider: Ryan Aguiar Consult Discharge Plan - Plan [facility]errals: [facility] [Primary Care Provider] - (2) Osteomyelitis Qualifiers: Osteomyelitis type: other acute Osteomyelitis location: foot Laterality: left Qualified Code(s): M86.172 - Other acute osteomyelitis, left ankle and foot (5) HTN (hypertension) Qualifiers: Hypertension type: unspecified Qualified Code(s): I10 - Essential (primary) hypertension (6) Altered mental status, unspecified Qualifiers: Altered mental status type: disorientation Qualified Code(s): R41.0 - Disorientation, unspecified
--- NOTE | 2018-03-21 09:36 | Infectious Disease Consult ---
Date of Encounter: 03/21/18 Time of Encounter: 09:34 Assessment and Plan (1) Osteomyelitis Status: Chronic Assessment and plan: Location: Left foot 5th metatarsal head and base of 5th proximal phalanx. Causative organism: Unclear. No wound cultures were obtained that I can find prior to admission. Likely secondary to diabetic foot ulcer. X-ray showed findings consistent with osteomyelitis. ESR 70, CRP 12. Wound culture is positive for GNR with final ID and susceptibility pending. [facility] since [facility]18 there. Was also originally on Vanc upon transfer there, but was discontinued upon arrival to the [facility]. Podiatry consulted. The patient has refused surgical intervention. No SIRS criteria. Blood cultures drawn 03/20/18 x 1 set are pending. Recommendations: - Await wound culture results. - Wound care per the Podiatry team's recommendations. - Continue Zosyn 3.375 grms IV Q8H. - Discontinue Vancomycin. - Duration of treatment depends on the clinical picture, but likely a total o 6- 8 weeks. - I discussed the importance of adequate source control in regards to the success of treating his foot infection. He states the [facility] Litigation Coordinator told him there are other options before operating and continues to decline surgical intervention. - Monitor renal function and dose-adjust antibiotics. - Strict glucose control. Qualifiers: Osteomyelitis type: other acute Osteomyelitis location: foot Laterality: left Qualified Code(s): M86.172 - Other acute osteomyelitis, left ankle and foot (2) Acute kidney injury Status: Acute Assessment and plan: Etiology unclear. Unsure of baseline. Improved. Continue to trend. Dose-adjust antibiotics and avoid nephrotoxins as able. (3) Altered mental status, unspecified Status: Resolved Assessment and plan: Etiology unclear. Neurology consulted. MRI brain pending completion. Qualifiers: Altered mental status type: disorientation Qualified Code(s): R41.0 - Disorientation, unspecified (4) Frequent falls Status: Acute Assessment and plan: Etiology unclear. Patient states ongoing for [address] head negative. MRI brain pending completion. (5) IDDM (insulin dependent diabetes mellitus) Status: Acute Assessment and plan: Recommend aggressive glucose monitoring and control to promote wound healing and prevent reinfection. Management per the primary team. Infectious Disease HPI - Data of Consult Patient: new to practice Consult date: 03/21/18 Requesting Physician: Eric Stoner MD [facility] Provider[facility] - Consult Narrative Reason for consult: left foot OM History of present illness: Mr. Callahan is a 62 year old male with a past medical history of insulin- dependent type 2 diabetes, and left foot osteomyelitis. The patient was admitted to the hospital for altered mental status, osteoarthritis, and acute kidney injury. We are consulted 03/21/18 for further recommendations f or left foot osteomyelitis. Briefly, the patient is a 62-year-old male with a past medical history as stated above. The patient presented to the emergency department from the [facility] status post fall with complaints of head and neck pain and altered mental status. Apparently, the patient was transferred to the [facility] a short stay there for left foot osteomyelitis. Cultures at [facility] and include blood cultures that were negative 2 sets. No wound cultures were obtained. According to the [facility] staff, he was receiving IV vancomycin and Zosyn upon arrival there and the vancomycin was discontinued. He has been at the [facility] since March 08. Apparently he was sitting in his wheelchair and fell asleep and fell out which prompted transfer here. Upon arrival, the patient was afebrile. He was mildly tachycardic and hypertensive, but was otherwise hemodynamically stable. Laboratory studies revealed a normal white blood cell count with an elevated serum creatinine of 1.67. Urinalysis was normal. Urine drug screen was positive for opiates. Blood alcohol and salicylate levels were normal. He had a cervical spine CT scan that was negative. CT of the head was negative. Chest x-ray showed mild bibasilar atelectasis. X-ray of the left foot showed ostial myelitis of the fifth metatarsal head and base of the proximal phalanx of the fifth digit with septic arthritis of the fifth MTP joint. Blood cultures were obtained 1 set. He was started on vancomycin and Zosyn and admitted to the hospital for further evaluation. Since admission, the patient has remained afebrile hemodynamically stable. He did sustain a fall while here in the hospital and underwent a repeat CT of the head that was negative. Neurology has been consulted to recommend an MRI of the brain which pending completion. She was consulted who recommended surgical in tervention for the osteomyelitis, but the patient has declined. He has a wound culture that was obtained and is positive for gram-negative rods with final ID and sensitivities pending. Today, his white blood cell count remains normal. His acute kidney injury is improving. ESR is elevated at 70 with a CRP of 12. Currently, he is on Vanco and Zosyn. We have been asked to evaluate and make further recommendations. During my exam today, the patient is somewhat of a poor historian, therefore, h ad to take some time and obtained the history [facility] the [facility] staff and the culture reports from the microbiology lab. The patient states that he has been in his usual state of health. He reports that the ulceration to his left foot has been there since December when a callous fell off. He states he had been following with traffic investigator. It is not exactly clear the events leading up to his hospitalization back in February. He denies any fevers or chills or rigors. He denies any headache or neck pain currently. He denies any dizziness or weakness. He denies any congestion, earache, or sore throat. He denies any nausea, vomiting, diarrhea, or constipation. He denies any abdominal pain or urinary complaints. He states appetite is good. He denies any pain at the site of the ulceration. He denies any redness or drainage. He denies any oral thrush or other skin lesions. She, the patient was living at home alone. He does have 2 dogs, but denies any bites or scratches to the foot. He denies any known trauma to the foot. He denies any tobacco or alcohol or illicit drug use. He does not work outside the home. He denies recent travel outside the [facility]. He denies any chronic infectious diseases. CC: Eric Stoner MD Past Med Surg Social Fam HX - Past Medical History Attestation: Yes The following information was validated with the patient. Medical history: diabetes Additional medical history: unknown Psychiatric history: no psych history - Past Surgical History Surgical History: other (foot surgery; unknown other surgeries) Additional surgical history: tonsillectomy, tubes in ears (1982), gallbladder removal - Social History Smoking Status: Current every day smoker Packs per day: 1/2 Smokeless Tobacco Status: No Alcohol use: none Drug use: none Occupational status: retired Current living situation: Home - Independent Activity Level: Independent ambulation Recent Out of Country Travel Within the Last 8 Weeks: No Exposure or Possible Exposure to Illness During Travel: No - Family History Father Family Member Ethnicity: Non- Living Status: Still Living Hx Family Endocrine Disorder: Yes (DM) Mother Family Member Ethnicity: Non- Living Status: Still Living Hx Family Cardiac Disorders: Yes (heart disease) Hx Family Endocrine Disorder: Yes (DM) Hx Family Psychosocial Disorders: Yes Infectious Disease-CN:Meds Albuterol Sulfate [Proair Hfa] 2 puff IH TID PRN 03/20/18 [History] Aloe Vera/Collagen [Aloe [place] Cleansing Foam] 1 applic TP DAILY 03/20/18 [History] Atorvastatin [Lipitor] 20 mg PO HS 03/20/18 [History] BuPROPion [Wellbutrin] 100 mg PO DAILY 03/20/18 [History] Cholecalciferol (D-3) [Vitamin D] 1,000 unit PO DAILY 03/20/18 [History] Cyanocobalamin (B-12) [Vitamin B12] 1,000 mcg PO DAILY 03/20/18 [History] Furosemide [Lasix] 20 mg PO Q48H 03/20/18 [History] Gabapentin [Neurontin] 1,200 mg PO TID 03/20/18 [History] Insulin Glargine,Hum.rec.anlog [Lantus Solostar] 35 unit SQ HS 03/20/18 [History] Metformin HCl [Glucophage] 1,000 mg PO BID 03/20/18 [History] Morphine Sulfate [Arymo ER] 15 mg PO DAILY 03/20/18 [History] Morphine Sulfate [Arymo ER] 30 mg PO TID PRN 03/20/18 [History] Multivitamin [One Daily Essential] 1 each PO DAILY 03/20/18 [History] Potassium Chloride [Klor-Con 10] 10 meq PO Q48H 03/20/18 [History] RX: Lisinopril [Zestril] 2.5 mg PO DAILY 03/20/18 [History] RX: Metoprolol Succinate 25 mg PO DAILY 03/20/18 [History] Tiotropium [Spiriva] 2 puff IH QAM 03/20/18 [History] Allergy/AdvReac Type Severity Reaction Status Date / Time diazepam [From Valium] Allergy Hallucinati Verified 03/20/18 02:47 ng sertraline Allergy Hallucinati Verified 03/20/18 02:47 ng All systems: reviewed and no additional remarkable complaints except as stated Exam - Constitutional Vitals: Temp Pulse Resp BP Pulse Ox 97.8 F 87 16 154/76 95 03/21/18 06:30 03/21/18 06:30 03/21/18 06:30 03/21/18 06:30 03/21/18 06:30 General appearance: average body habitus, cooperative, no acute distress - Head Head exam: Present: atraumatic, normal inspection, normocephalic - Eye Eye exam: Present: EOMI, normal appearance, PERRL Pupils: Present: normal accommodation - ENT ENT exam: Present: mucous membranes moist - Neck Neck exam: Present: normal inspection - Respiratory Respiratory exam: Present: CTAB. Absent: rales, respiratory distress, rhonchi, wheezes - Cardiovascular Cardiovascular exam: Present: RRR, +S1, +S2, systolic murmur - GI/Abdominal GI/Abdominal exam: Present: normal bowel sounds, soft. Absent: distended, tenderness - Extremities Exam Extremities exam: Absent: normal inspection (Left foot ulceration overlying the lateral aspect of the 5th MT. No surrounding erythema noted. Tenderness noted with palpation. Wound bed is scabbed without drainage.) - Neurological Exam Neurological exam: Present: alert, oriented X3, no focal deficits - Psychiatric Psychiatric exam: Present: normal affect, normal mood - Skin Skin exam: Present: dry, intact, normal color, warm Infectious Disease CN: Results - Labs CBC & Chem 7: 03/22/18 09:18 03/22/18 09:18 Cultures: Cultures 03/20/18 04:10 Wound Culture - Preliminary Left Foot Gram Negative Steve 03/20/18 03:31 Blood Culture - Preliminary Peripheral Venipuncture Culture is incubating and being continuously monitored for growth. Final report to follow. Serology: Serology 03/20/18 Range/Units 03:53 Urine Color Yellow (Yellow) Urine Clarity Clear (Clear) Urine pH 7.0 (5.0-8.0) pH Units Ur Specific [place] 1.011 (1.010-1.025) Urine Protein 30 H (Neg-Trace) mg/dL Urine Glucose (UA) 100 H (Normal) mg/dL Urine Ketones Negative (Negative) mg/dL Urine Blood Negative (Negative) Urine Nitrite Negative (Negative) Urine Bilirubin Negative (Negative) Urine Urobilinogen Normal (Normal) mg/dL Ur Leukocyte Esterase Negative (Negative) Urine Microscopic RBC 0-3 (0-3) per hpf Urine Microscopic WBC 0-3 (0-3) per hpf Ur Squamous Epith Cells None Seen (None-Few) per lpf Urine Bacteria None Seen (None-Few) per hpf Hyaline Casts None Seen (None-Few) per lpf Ur Culture Indicated? NO (NO) Consult Discharge Plan - Plan [facility]errals: [facility]Primary Care Provider[facility] - - Attending Attestation I examined this patient and my medical decision-making was reviewed with the Resident Physician. I agree with the documented findings, disposition and treatment plan as described except to the extent set forth below. This is an addendum to original report dictated by Loree Malhotra CNP. Please refer to Loree's note for full detail. Patient is 62-year-old gentleman who is a was transferred to us for osteomyelitis. We were asked to evaluate the patient and make further recommendations. Currently patient laying in bed. Appears calm and appropriate for the most part. Physical exam and review of system as above. Assessment and plan: Osteomyelitis of the left foot fifth metatarsal head and base of the fifth proximal phalanx. We have no causative organism. We did call [facility] and the [facility] to get cultures and he has never had cultures before. Likely secondary to diabetic foot ulcer X-ray shows finding consistent with osteomyelitis ESR 70, CRP 12 Sandwich repeat cultures are growing gram-negative rods with final ID pending Agree with Zosyn dose adjust. We will stop the vancomycin since there is no gram-positive cocci Duration of treatment probably 6-8 weeks Will tailor antibiotics once the cultures are finalized because Zosyn is very hard to give as an outpatient Will need follow-up with us in clinic 2 weeks
[2018-03-21] MEDS: *HR* Morphine Immed Rel 30 MG TABLET PO PRN ×2 (09:52→19:58)
[2018-03-21] MEDS: Furosemide 20 MG TABLET PO SCH (09:53)
--- NOTE | 2018-03-21 12:51 | Neurology Progress Note ---
Date of Encounter: 03/21/18 Time of Encounter: 12:48 Assessment and Plan (1) Altered mental status, unspecified Current Visit: Yes Status: Resolved Resolved. MRI of brain returned no acute intracranial abnormality. No further testing will be recommended. Please continue medical and supportive care Qualifiers: Altered mental status type: disorientation Qualified Code(s): R41.0 - Disorientation, unspecified (2) Chronic headache Current Visit: Yes Status: Acute These are chronic in nature. symptomatic treatment recommended. patient to follow up with PCP at [facility] fur further treatment of such chronic headaches Will sign off at this time. Please call if any questions Qualifiers: Headache type: unspecified Qualified Code(s): R51 - Headache Subjective Principal diagnosis: fall and headache and confusion Interval history: Patient seen and examined. Today he is wide awake and looks much alert than y . He is eating comfortably. He is able to provide more history regarding his illnesses. He is no longer confused. He states that his head hurts. He states that headaches have been chronic in nature and that [place] has ignored it for years. He says that he has headache, neck pain and back pain but neck pain is new. When he eats he is able to move his head and stretch his upper body to reach the food. Objective - Constitutional Vitals: Temp Pulse Resp BP Pulse Ox 98.1 F 94 16 147/78 96 03/21/18 10:00 03/21/18 10:00 03/21/18 10:00 03/21/18 10:00 03/21/18 10:00 - Neurological Exam Sensorimotor examination: Present: other (Grossly intact) Motor Examination: Present: other (Upper arms and hands moves normal range and strength. Lower extremities difficult to examine due to left foot ulcer) Motor examination - right side: 5/5: deltoids, biceps, triceps, wrist flexion, wrist extension, audiology director, toe extension (EHL), plantarflexion Motor examination - left side: 5/5: deltoids, biceps, triceps, wrist flexion, wrist extension, audiology director Sensation intact: Present: other (Grossly intact) Posture: Present: other (None) Reflex and gait examination: other (Gait unable to be assessed) Mental Status Examination: Present: awake, alert, oriented to person, oriented to place, oriented to time, follows commands appropriately, answers questions appropriately, no agnosia Cranial nerve examination: Present: PERRL, EOMI (Full movements), corneal reflexes brisk symmetrically, sensory to face intact, mastication intact, no facial asymmetry is present, no dysarthria, hearing is intact symmetrically, gag reflex intact, flexes SCM and trapezius muscles symmetrically with full power, tongue protrudes midline, no atrophy or facial fasiculations present Results - Laboratory Findings CBC and BMP: 03/21/18 04:31 03/21/18 04:31 Abnormal lab findings: Abnormal lab results RBC 3.50 M/mcL (4.19-5.50) L 03/21/18 04:31 Hgb 10.3 g/dL (12.9-16.9) L 03/21/18 04:31 Hct 31.9 % (37.5-50.1) L 03/21/18 04:31 ESR 70 mm/hr (0-10) H 03/21/18 04:31 APTT 36.6 Seconds (26.0-36.0) H 03/20/18 03:31 Chloride 112 mEq/L (98-107) H 03/21/18 04:31 BUN 30 mg/dL (8-23) H 03/21/18 04:31 Creatinine 1.40 mg/dL (0.70-1.30) H 03/21/18 04:31 Est GFR (Non-Af Amer) 51 (> 60) L 03/21/18 04:31 Glucose 139 mg/dL (70-105) H 03/21/18 04:31 POC Glucose 132 mg/dL (70-99) H 03/21/18 07:18 C-Reactive Protein 12 mg/L (Less than 10) H 03/21/18 04:31 Serum Total Protein 6.1 g/dL (6.4-8.9) L 03/21/18 04:31 Albumin 3.1 g/dL (3.5-5.7) L 03/21/18 04:31 Albumin/Globulin Ratio 1.0 (1.1-2.2) L 03/21/18 04:31 HDL Cholesterol 23 mg/dL (40-59) L 03/21/18 04:31 Urine Protein 30 mg/dL (Neg-Trace) H 03/20/18 03:53 Urine Glucose (UA) 100 mg/dL (Normal) H 03/20/18 03:53 Vancomycin Trough 13 mcg/mL (5-10) H 03/21/18 04:31 Salicylates < 2.5 mg/dL (15.0-30.0) L 03/20/18 03:31 Urine Opiates Screen Positive ng/mL (Cwlyli=350) H 03/20/18 03:53 Acetaminophen < 10 mcg/mL (10-20) L 03/20/18 03:31 Consult Discharge Plan - Plan [facility]errals: [facility] [Primary Care Provider] -
--- NOTE | 2018-03-21 14:51 | Electrocardiograph Report ---
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
[2018-03-22] MEDS ORDERED: Acetaminophen IV 500 MG/50 ML INFUS..BTL IVPB ONE (02:23)
[2018-03-22] MEDS: *HR* Morphine Immed Rel 30 MG TABLET PO PRN ×2 (04:04→17:05)
[2018-03-22] MEDS: Piperacillin/Tazobactam 3.375 GM in 0.9 % Sodium Chloride Mini Bag 100 ML IVPB SCH (04:04)
[2018-03-22 05:21] LABS: Folate 12.4 ng/mL (3.0-16.0)
[2018-03-22] MEDS: *HR* Heparin 5,000 UNIT/ML VIAL SQ SCH ×2 (06:17→17:05)
[2018-03-22] MEDS: Tiotropium 18 MCG inhalation IH SCH (07:21)
[2018-03-22] MEDS: *HR* Morphine Sulfate SR (12 HR) 15 MG TABLET.ER PO SCH (07:59)
[2018-03-22] MEDS: Furosemide 20 MG TABLET PO SCH (07:59)
[2018-03-22] MEDS: Aspirin Enteric Coated 81 MG Tablet PO SCH (07:59)
[2018-03-22] MEDS: Metoprolol XL (24 HR) Succ 25 MG TAB.ER.24H PO SCH (07:59)
[2018-03-22] MEDS: Insulin DETEMIR 100 UNIT/ML X5UNITS SQ SCH ×2 (08:05→21:41)
[2018-03-22] MEDS: Insulin LISPRO 300 UNITS/3 ML VIAL SQ SCH ×3 (08:07→16:39)
--- NOTE | 2018-03-22 08:41 | Discharge Summary ---
<Leo Wilson - Last Filed: 03/22/18 14:35> - NOTES TO OUTPATIENT PROVIDER Notes to Outpatient Provider: - Patient is on colistin for osteomyelitis. He needs to get CBC and CMP daily in order to monitor his renal function closely. - Patient needs to be on colistin 2.5 mg/kg IV daily for a total of 6-8 weeks. - Patient was offered the option of surgical debridement for his foot infection but patient declined surgical intervention. - Regular wound care. Orders not resulted at time of discharge: Pending orders 03/20/18 03:31 Culture,Blood [BC] Stat 03/20/18 04:10 Culture,Wound [RM] Stat 03/20/18 06:00 ECG 12 lead ECG [ECG] AM 0600 03/21/18 11:28 Hgb A1C Routine Date of Encounter: 03/22/18 Time of Encounter: 09:30 - Discharge Diagnosis (1) Altered mental status, unspecified Priority: Primary Status: Resolved Qualifiers: Altered mental status type: disorientation Qualified Code(s): R41.0 - Disorientation, unspecified (2) Osteomyelitis Priority: Secondary Status: Chronic Qualifiers: Osteomyelitis type: other acute Osteomyelitis location: foot Laterality: left Qualified Code(s): M86.172 - Other acute osteomyelitis, left ankle and foot (3) IDDM (insulin dependent diabetes mellitus) Priority: Secondary Status: Acute (4) Acute kidney injury superimposed on CKD Priority: Secondary Status: Chronic (5) HTN (hypertension) Priority: Secondary Status: Chronic Qualifiers: Hypertension type: unspecified Qualified Code(s): I10 - Essential (primary) hypertension (6) Frequent falls Priority: Secondary Status: Acute Hospital course: Mr. eLrner is a 62 year old male past medical history of diabetes, osteomyelitis who was transferred from the [facility] to [facility] because of concerns for falls and altered mental status. Initial workup showed that his head CT was negative for any hemorrhage or intracranial mass. Patient also had a brain MRI to rule out any evidence of embolic stroke which was negative. During the course of hospital stay, patient was treated with the IV 3.375 Zosyn for his foot ulcer and was offered the option for surgical debridement of his foot ulcer which patient denied. Patient endorses that he has already spoken to the podiatry at the [place] and he has offered alternative treatment options for his osteomyelitis and he would like to stick with that plan. On physical exam today patient was alert and oriented 3 with no evidence of any confusion whatsoever. His speech was clear and he was following my commands. His neurological exam was unremarkable. He did endorse headache which he tells me is chronic in nature and going on for the past 22 years. Patient's wound culture was positive for Acinetobactor baumanii which was moore-sensitive . He will be discharged on 2.5 mg/ kg colistin IV daily for a total of 6-8 weeks. While on Colistin, patient needs to get his renal function checked. - Time Spent with Patient Total time spent providing and/or coordinating discharge services: - Discharge Medications Home Medications: Albuterol Sulfate [Proair Hfa] 2 puff IH TID PRN 03/20/18 [History] Aloe Vera/Collagen [Aloe [place] Cleansing Foam] 1 applic TP DAILY 03/20/18 [History] Atorvastatin [Lipitor] 20 mg PO HS 03/20/18 [History] BuPROPion [Wellbutrin] 100 mg PO DAILY 03/20/18 [History] Cholecalciferol (D-3) [Vitamin D] 1,000 unit PO DAILY 03/20/18 [History] Cyanocobalamin (B-12) [Vitamin B12] 1,000 mcg PO DAILY 03/20/18 [History] Furosemide [Lasix] 20 mg PO Q48H 03/20/18 [History] Gabapentin [Neurontin] 1,200 mg PO TID 03/20/18 [History] Insulin Glargine,Hum.rec.anlog [Lantus Solostar] 35 unit SQ HS 03/20/18 [History] Lisinopril [Zestril] 2.5 mg PO DAILY 03/20/18 [History] Metformin HCl [Glucophage] 1,000 mg PO BID 03/20/18 [History] Metoprolol Succinate 25 mg PO DAILY 03/20/18 [History] Morphine Sulfate [Arymo ER] 15 mg PO DAILY 03/20/18 [History] Morphine Sulfate [Arymo ER] 30 mg PO TID PRN 03/20/18 [History] Multivitamin [One Daily Essential] 1 each PO DAILY 03/20/18 [History] Potassium Chloride [Klor-Con 10] 10 meq PO Q48H 03/20/18 [History] Tiotropium [Spiriva] 2 puff IH QAM 03/20/18 [History] Allergies/Adverse Reactions: Allergy/AdvReac Type Severity Reaction Status Date / Time diazepam [From Valium] Allergy Hallucinati Verified 03/20/18 02:47 ng sertraline Allergy Hallucinati Verified 03/20/18 02:47 ng Date of admission: 03/20/18 05:55 Primary care physician: PCP [facility] Consults: 03/20/18 05:55 Consult to Podiatry [CONS] Routine Consulting Provider: [facility] Reason for Consult: DFU/osteomyelitis Call Completed: No 03/20/18 07:34 Consult to Neurology [CONS] Routine Consulting Provider: Neurology [facility] Reason for Consult: usteadyness. AMS. s/p multiple falls Call Completed: No 03/20/18 13:18 Consult to Infectious Diseases [CONS] Routine Consulting Provider: Infectious [facility] Reason for Consult: Osteomyelitis Call Completed: No 03/21/18 18:03 Consult to Grain Mill Products Inspector [CONS] Routine Reason for SW Consult[facility]. - Constitutional Vitals: Temp Pulse Resp BP Pulse Ox 98.0 F 66 16 135/75 94 03/22/18 06:27 03/22/18 06:27 03/22/18 07:23 03/22/18 06:27 03/22/18 07:23 General appearance: Present: A&O X 1, disheveled Exam: General: Patient is alert, oriented x4, in acute distress due to neck pain and back pain Head: chronic TALBERT, atraumatic, normocephalic, Eye: normal appearance, PERRL, no scleral icterus, no conjunctival injection ENT: mucous membranes moist, normal external ear exam Respiratory: Breath sounds are clear to auscultation bilaterally, no wheezing rales or crackles. Cardiovascular: RRR, normal s1 and s2, No rubs, gallops, or murmors. Abdomen: Bowel sounds present normoactive x-4 quadrants. Abdomen is soft, nondistended. No guarding or rebound. No organomegaly noted, Musculoskeletal: Left foot bandaged due to oteomyeltitis, Spontaneously moving all extremities. no edema, no calf tenderness Neuro: CN II-XII intact. Sensory and motor functions intact. Psych: Patient's affect is normal - Patient Status Disposition: Admitted As Inpatient Condition: Good Overall status at discharge: patient is progressing back to baseline - Discharge Instructions [facility] With: [facility] Provider[facility] - Additional Instructions: - Continue to be on the colistin 2.5 mg /kg IV daily -Strict glucose control because of history of diabetes - - Diet and Activity Activity: increase activity as tolerated Diet: diabetic diet <Shade [place] - Last Filed: 03/22/18 18:07> Orders not resulted at time of discharge: Pending orders 03/20/18 03:31 Culture,Blood [BC] Stat 03/20/18 04:10 Culture,Wound [RM] Stat 03/21/18 11:28 Hgb A1C Routine Date of Encounter: 03/22/18 - Discharge Diagnosis (1) Altered mental status, unspecified Status: Resolved Qualifiers: Altered mental status type: disorientation Qualified Code(s): R41.0 - Disorientation, unspecified (2) Osteomyelitis Priority: Primary Status: Chronic Qualifiers: Osteomyelitis type: other acute Osteomyelitis location: foot Laterality: left Qualified Code(s): M86.172 - Other acute osteomyelitis, left ankle and foot (3) IDDM (insulin dependent diabetes mellitus) Status: Chronic (4) Acute kidney injury superimposed on CKD Status: Chronic (5) HTN (hypertension) Status: Chronic Qualifiers: Hypertension type: unspecified Qualified Code(s): I10 - Essential (primary) hypertension (6) Frequent falls Status: Acute (7) Chronic headache Priority: Secondary Status: Chronic Qualifiers: Headache type: unspecified Qualified Code(s): R51 - Headache (8) Diabetes Priority: Secondary Status: Chronic Qualifiers: Diabetes mellitus type: type 2 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 Lerner is a 62 year old male - Time Spent with Patient Total time spent providing and/or coordinating discharge services: 37min Date of admission: 03/20/18 05:55 Primary care physician: [facility] Consults: 03/20/18 05:55 Consult to Podiatry [CONS] Routine Consulting Provider: [facility] Reason for Consult: DFU/osteomyelitis Call Completed: No 03/20/18 07:34 Consult to Neurology [CONS] Routine Consulting Provider: Neurology [facility] Reason for Consult: usteadyness. AMS. s/p multiple falls Call Completed: No 03/20/18 13:18 Consult to Infectious Diseases [CONS] Routine Consulting Provider: Infectious [facility] Reason for Consult: Osteomyelitis Call Completed: No 03/21/18 18:03 Consult to Grain Mill Products Inspector [CONS] Routine Reason for SW Consult: [facility]. - Constitutional Vitals: Temp Pulse Resp BP Pulse Ox 98.2 F 65 16 154/64 97 03/22/18 16:11 03/22/18 16:11 03/22/18 16:11 03/22/18 16:11 03/22/18 16:11 - Attending Attestation I examined this patient and my medical decision-making was reviewed with the Resident Physician on 03/22/18. I agree with the documented findings, disposition and treatment plan as described except to the extent set forth below. Mr Cruz has been hospitalized for acute osteomyelitis. Surgery has been recommended but he has declined. He is on IV Colistin for MDR Acinetobacter. He is ready for discharge to [place] for further management by the baker pastry. He needs renal function monitored. Exam alert Comfortable Mucus membranes dry Heart not tachy No wheeze abd soft Dressing intact I/P 1.OM - on Colistin Arranging to go to [place].
--- NOTE | 2018-03-22 09:09 | Infectious Disease Progress No ---
Date of Encounter: 03/22/18 Time of Encounter: 08:45 - Assessment and Plan (1) Osteomyelitis Current Visit: Yes Status: Chronic Location: Left foot 5th metatarsal head and base of 5th proximal phalanx. Causative organism: MDRO Acinetobacter. Likely secondary to diabetic foot ulcer. X-ray showed findings consistent with osteomyelitis. ESR 70, CRP 12. [facility] since 03/08/18 there. Was also originally on Vanc upon transfer there, but was discontinued upon arrival to the [place]. Podiatry consulted. The patient has refused surgical intervention. No SIRS criteria. Blood cultures drawn 03/20/18 x 1 set are NGTD. Recommendations: - Wound care per the Podiatry team's recommendations. - Given the causative organism, the patient would benefit from surgical resection. Would recommend the primary team re-discuss the possibility of surgery with the patient. - Send specimen for Colistin susceptibility. - Start Colistin 2.5mg/kg IV daily. - Discontinue Zosyn. - Duration of treatment depends on the clinical picture, but likely a total of 6-8 weeks. - I discussed the importance of adequate source control in regards to the success of treating his foot infection. He states the [facility] A [facility] Specialist told him there are other options before operating and continues to decline surgical intervention. - Monitor renal function and dose-adjust antibiotics. - Strict glucose control. - Repeat CBC and BMP daily. Will need to monitor renal function closely while on Colistin. Qualifiers: Osteomyelitis type: other acute Osteomyelitis location: foot Laterality: left Qualified Code(s): M86.172 - Other acute osteomyelitis, left ankle and foot (2) Acute kidney injury Current Visit: Yes Status: Acute Etiology unclear. Unsure of baseline. Improved. Continue to trend. Dose-adjust antibiotics and avoid nephrotoxins as able. (3) Altered mental status, unspecified Current Visit: Yes Status: Resolved Etiology unclear. Neurology consulted and signed off. MRI brain negative. Qualifiers: Altered mental status type: disorientation Qualified Code(s): R41.0 - Disorientation, unspecified (4) Frequent falls Current Visit: Yes Status: Acute Etiology unclear. Patient states ongoing for 20 years. Neurology consulted and signed off. CT head negative. MRI brain negative. (5) IDDM (insulin dependent diabetes mellitus) Current Visit: Yes Status: Chronic Recommend aggressive glucose monitoring and control to promote wound healing and prevent reinfection. Management per the primary team. - Subjective Interval history: Patient seen and examined sitting up in bed. No acute events noted overnight. Patient continues to complain of chronic headache and neck pain. Denies any weakness or dizziness or recent falls. Denies any chest pain, shortness of breath, or cough. Denies any nausea, vomiting, diarrhea, or constipation. Denies abdominal pain or urinary complaints. Denies any oral thrush or new skin lesions. Denies any pain at the site of the left foot ulceration. Infect Dis PN-Objective Data - Labs CBC & Chem 7: 03/23/18 06:26 03/23/18 06:26 Labs: Laboratory Results - last 24 hr 03/20/18 03/21/18 03/21/18 20:30 04:31 07:18 POC Glucose 318 H 132 H Hemoglobin A1c TNP Vitamin B12 Folate 03/21/18 03/22/18 03/22/18 19:43 04:05 07:22 POC Glucose 159 H 91 Hemoglobin A1c Vitamin B12 318 Folate 12.4 Cultures: Cultures 03/20/18 04:10 Wound Culture - Preliminary Left Foot Gram Negative Steve 03/20/18 03:31 Blood Culture - Preliminary Peripheral Venipuncture Culture is incubating and being continuously monitored for growth. Final report to follow. Serology 03/20/18 Range/Units 03:53 Urine Color Yellow (Yellow) Urine Clarity Clear (Clear) Urine pH 7.0 (5.0-8.0) pH Units Ur Specific [place] 1.011 (1.010-1.025) Urine Protein 30 H (Neg-Trace) mg/dL Urine Glucose (UA) 100 H (Normal) mg/dL Urine Ketones Negative (Negative) mg/dL Urine Blood Negative (Negative) Urine Nitrite Negative (Negative) Urine Bilirubin Negative (Negative) Urine Urobilinogen Normal (Normal) mg/dL Ur Leukocyte Esterase Negative (Negative) Urine Microscopic RBC 0-3 (0-3) per hpf Urine Microscopic WBC 0-3 (0-3) per hpf Ur Squamous Epith Cells None Seen (None-Few) per lpf Urine Bacteria None Seen (None-Few) per hpf Hyaline Casts None Seen (None-Few) per lpf Ur Culture Indicated? NO (NO) - Impressions Impressions Brain MRI 03/21/18 07:34 IMPRESSION: 1. No evidence of acute infarct. 2. Cerebral and cerebellar parenchymal volume loss with mild chronic microvascular white matter ischemic disease. D/ / 03/21/2018 11:56:28 Morgan Potter MD / earnold Interpreting Provider: Morgan Potter MD Exam - Constitutional Vitals: Temp Pulse Resp BP Pulse Ox 98.0 F 66 16 135/75 94 03/22/18 06:27 03/22/18 06:27 03/22/18 07:23 03/22/18 06:27 03/22/18 07:23 General appearance: average body habitus, cooperative, no acute distress - Head Head exam: Present: atraumatic, normal inspection, normocephalic - Eye Eye exam: Present: EOMI, normal appearance, PERRL Pupils: Present: normal accommodation - ENT ENT exam: Present: mucous membranes moist - Neck Neck exam: Present: normal inspection. Absent: tenderness - Respiratory Respiratory exam: Present: CTAB. Absent: rales, respiratory distress, rhonchi, wheezes - Cardiovascular Cardiovascular exam: Present: +S1, +S2, systolic murmur - GI/Abdominal GI/Abdominal exam: Present: normal bowel sounds, soft. Absent: distended, tenderness - Extremities Exam Extremities exam: Absent: normal inspection (Left foot dressing is clean, dry, and intact.) - Neurological Exam Neurological exam: Present: alert, oriented X3, no focal deficits - Psychiatric Psychiatric exam: Present: flat affect, normal affect - Skin Skin exam: Present: dry, intact, normal color, warm Consult Discharge Plan - Plan Additional Instructions: - Continue to be on the colistin 2.5 mg /kg IV daily -Strict glucose control because of history of diabetes - [facility]errals: [facility] [Primary Care Provider] - - Attending Attestation I examined this patient and my medical decision-making was reviewed with the Resident Physician. I agree with the documented findings, disposition and treatment plan as described except to the extent set forth below.
[2018-03-22 09:29] LABS: Basophils # 0.1 K/mcL (0.0-0.2); Basophils % 0.9 %; Eosinophils # 0.3 K/mcL (0.0-0.6); Eosinophils % 5.4 %; Hematocrit 33.4 % (37.5-50.1); Hemoglobin 10.7 g/dL (12.9-16.9); Immature Granulocytes % 0.5 % (0-4); Lymphocytes # 1.6 K/mcL (0.6-4.6); Lymphocytes % 29.3 %; Mean Corpuscular Volume 90.5 fL (83.0-100.0); Mean Platelet Volume 9.6 fL (9.4-12.4); Monocytes # 0.6 K/mcL (0.0-1.3); Monocytes % 10.9 %; Platelet Count 229 K/mcL (140-400); Red Blood Count 3.69 M/mcL (4.19-5.50); Red Cell Distribution Width 12.6 % (11.5-14.5)
[2018-03-22 09:48] LABS: BUN/Creatinine Ratio 18 (6-26); Blood Urea Nitrogen 24 mg/dL (8-23); Calcium 8.6 mg/dL (8.6-10.3); Carbon Dioxide 26 mEq/L (23-29); Chloride 108 mEq/L (98-107); Glucose 154 mg/dL (70-105); Osmolality,Calculated 297 (280-300); Sodium 140 mEq/L (136-145); eGFR For Non-African Americans 52 (> 60)
[2018-03-22] MEDS ORDERED: Colistin (Colistimethate) 300 MG in 0.9 % Sodium Chloride 50 ML IVPB ONE (12:00)
[2018-03-22] MEDS: Gentamicin Oint 15 GM TUBE TP SCH (12:07)
[2018-03-23] MEDS: Colistin (Colistimethate) 150 MG in 0.9 % Sodium Chloride 50 ML IVPB SCH ×2 (01:08→12:39)
[2018-03-23] MEDS: *HR* Morphine Immed Rel 30 MG TABLET PO PRN ×2 (01:08→18:12)
[2018-03-23] MEDS: *HR* Heparin 5,000 UNIT/ML VIAL SQ SCH ×2 (05:30→18:12)
[2018-03-23 07:04] LABS: Calcium 9.1 mg/dL (8.6-10.3); Magnesium 1.6 mg/dL (1.6-2.6); Potassium 4.9 mEq/L (3.5-5.1)
[2018-03-23 07:06] LABS: Hemoglobin 10.6 g/dL (12.9-16.9); Mean Corpuscular HGB Conc 32.1 g/dL (31.6-35.5); Mean Corpuscular Hemoglobin 29.5 pg (28.0-33.3); Mean Corpuscular Volume 91.9 fL (83.0-100.0); Mean Platelet Volume 9.9 fL (9.4-12.4); Platelet Count 244 K/mcL (140-400); Red Blood Count 3.59 M/mcL (4.19-5.50); Red Cell Distribution Width 12.6 % (11.5-14.5)
[2018-03-23] MEDS: Tiotropium 18 MCG inhalation IH SCH (08:02)
[2018-03-23] MEDS: Insulin LISPRO 300 UNITS/3 ML VIAL SQ SCH ×3 (08:02→17:29)
--- NOTE | 2018-03-23 08:14 | Internal Med Progress Note ---
<Shade Camarillo - Last Filed: 03/23/18 14:29> Hospitalist Progress Note - Encounter Date of Encounter: 03/23/18 - Exam Vitals: Temp Pulse Resp BP Pulse Ox 97.9 F 51 18 168/85 97 03/23/18 12:01 03/23/18 12:01 03/23/18 12:01 03/23/18 12:01 03/23/18 12:01 - Assessment and Plan (1) Altered mental status, unspecified Current Visit: Yes Status: Resolved (2) Osteomyelitis Current Visit: Yes Status: Chronic (3) IDDM (insulin dependent diabetes mellitus) Current Visit: Yes Status: Chronic (4) Acute kidney injury superimposed on CKD Current Visit: Yes Status: Chronic (5) HTN (hypertension) Current Visit: Yes Status: Chronic (6) Frequent falls Current Visit: Yes Status: Acute (7) Chronic headache Current Visit: Yes Status: Chronic (8) Tobacco abuse Current Visit: Yes Status: Chronic (9) Diabetes Current Visit: Yes Status: Chronic - Time Spent with Patient Total time spent is greater than 50% in coordination of care (as documented) at patient's floor/unit and/or counseling patient: Internal Medicine: Result - Labs CBC & Chem 7: 03/23/18 06:26 03/23/18 06:26 Labs: Short CBC 03/23/18 Range/Units 06:26 WBC 7.0 (4.3-11.1) K/mcL Hgb 10.6 L (12.9-16.9) g/dL Hct 33.0 L (37.5-50.1) % Plt Count 244 (140-400) K/mcL BMP 03/23/18 06:26 Sodium 139 Potassium 4.9 Chloride 109 H Carbon Dioxide 25 BUN 32 H Creatinine 1.46 H Glucose 133 H Calcium 9.1 - ABG Interpretation ABG results: PT/INR, D-dimer PT 11.8 Seconds (9.4-12.1) 03/20/18 03:31 Consult Discharge Plan - Plan Additional Instructions: - Continue to be on the colistin 2.5 mg /kg IV daily -Strict glucose control because of history of diabetes - [facility] Provider[facility] - - Attending Attestation I examined this patient and my medical decision-making was reviewed with the Resident Physician on 03/23/18. I agree with the documented findings, disposition and treatment plan as described except to the extent set forth below. Mr Lerner is currently admitted for acute osteomyelitis of his foot with MDR Acinetobacter infection. He remains moderate to high risk due to potential for worsening clinical status. Mr Lerner is frustrated at this time. He is tolerating the IV Colistin. No new issues. No fever or chills. Working on placement issue. Exam Alert Comfortable Mucus membranes dry Heart not tachy No wheeze Abd soft Dressing intact I/P 1. OM - on IV Colistin. [facility]. Acute encephalopathy resolved Further diagnoses and plan as above. <Leo Wilson - Last Filed: 03/23/18 15:44> Hospitalist Progress Note - Encounter Date of Encounter: 03/23/18 Time of Encounter: 09:30 - Subjective Interval History: Saw Mr. Lerner at the bedside this AM. Patient is afebrile, on day 2 of colistin for his osteomyelitis, cultures grew Acinetobator baumanni . He is [facility] or further management of his osteomyelitis. Patient was again given an option for surgical debridement of his foot wound but he denied . - Exam Vitals: Temp Pulse Resp BP Pulse Ox 97.9 F 71 17 146/62 96 03/23/18 06:52 03/23/18 06:52 03/23/18 08:02 03/23/18 06:52 03/23/18 08:02 Exam: General: Patient is alert, oriented x4, in acute distress due to neck pain and back pain Head: chronic TALBERT, atraumatic, normocephalic, Eye: normal appearance, PERRL, no scleral icterus, no conjunctival injection ENT: mucous membranes moist, normal external ear exam Respiratory: Breath sounds are clear to auscultation bilaterally, no wheezing rales or crackles. Cardiovascular: RRR, normal s1 and s2, No rubs, gallops, or murmors. Abdomen: Bowel sounds present normoactive x-4 quadrants. Abdomen is soft, nondistended. No guarding or rebound. No organomegaly noted, Musculoskeletal: Left foot bandaged due to oteomyeltitis, Spontaneously moving all extremities. no edema, no calf tenderness Neuro: CN II-XII intact. Sensory and motor functions intact. Psych: Patient's affect is normal - Assessment and Plan (1) Altered mental status, unspecified Current Visit: Yes Status: Resolved Assessment and Plan: -. We do not know what the cause of his AMS was when he came to the hospital, because [facility] did not send any records. Currently he is in A&O 3. His Head CT and MRI were negative for any hemorrhage or intracranial masses. No focal neurological deficits appreciated on examination. - Is currently awaiting placement from [facility] to [place]. (2) Osteomyelitis Current Visit: Yes Status: Chronic Assessment and Plan: - Patient has Osteomyelitis of the left 5th metatarsal head . His wound cultures were positive for Acinetobacter Baumanni and is currently being treated with colistin day 2. - Currently endorses no acute pain in his foot. Patient is afebrile, WBC is 7. Had an ESR of 70 on admission. - Clinic Physician Director consulted recommended surgical intervention but patient refused. - On morphine 2mg/IV Q4HR PRN for pain control (3) IDDM (insulin dependent diabetes mellitus) Current Visit: Yes Status: Chronic Assessment and Plan: - Has a history of fall diabetes mellitus. He is currently on Levemir 10 units BID, on lispro on low-dose sliding scale -Most recent recent blood glucose 133 . Continue to monitor (4) Acute kidney injury superimposed on CKD Current Visit: Yes Status: Chronic Assessment and Plan: - Patient has a history of stage III CKD. GFR 50. He also has has an EMMIE since admission. EMMIE could be secondary to being started on colistin for his osteomyelitis - Continue to monitor (5) HTN (hypertension) Current Visit: Yes Status: Chronic Assessment and Plan: - Patient has a history of hypertension. - Currently is on home meds : Lasix 20 mg by mouth and metoprolol 25 mg PO (6) Frequent falls Current Visit: Yes Status: Acute Assessment and Plan: -Reason for frequent falls unclear, no records could be retrieved from the [facility]. His brain MRI and CT was unremarkable. B12 and folate were normal. -Neurology was seeing the patient and patient appreciated no focal neurological deficits -Continue to monitor (7) Chronic headache Current Visit: Yes Status: Chronic Assessment and Plan: - Patient has a history of chronic headache does been going on for the last 22 years (8) Tobacco abuse Current Visit: Yes Status: Chronic DVT Prophylaxis: On heparin 5000 units subcutaneous twice a day. - Time Spent with Patient Total time spent is greater than 50% in coordination of care (as documented) at patient's floor/unit and/or counseling patient: Internal Medicine: Result - Labs CBC & Chem 7: 03/23/18 06:26 03/23/18 06:26 Labs: Short CBC 03/22/18 03/23/18 Range/Units 09:18 06:26 WBC 5.6 7.0 (4.3-11.1) K/mcL Hgb 10.7 L 10.6 L (12.9-16.9) g/dL Hct 33.4 L 33.0 L (37.5-50.1) % Plt Count 229 244 (140-400) K/mcL Neutrophils # 3.0 (1.6-8.9) K/mcL BMP 03/22/18 03/23/18 09:18 06:26 Sodium 140 139 Potassium 5.0 4.9 Chloride 108 H 109 H Carbon Dioxide 26 25 BUN 24 H 32 H Creatinine 1.37 H 1.46 H Glucose 154 H 133 H Calcium 8.6 9.1 - ABG Interpretation ABG results: PT/INR, D-dimer PT 11.8 Seconds (9.4-12.1) 03/20/18 03:31 <Shade Camarillo - Last Filed: 03/23/18 14:29> (1) Altered mental status, unspecified Qualifiers: Altered mental status type: disorientation Qualified Code(s): R41.0 - Disorientation, unspecified (2) Osteomyelitis Qualifiers: Osteomyelitis type: other acute Osteomyelitis location: foot Laterality: left Qualified Code(s): M86.172 - Other acute osteomyelitis, left ankle and foot (5) HTN (hypertension) Qualifiers: Hypertension type: essential hypertension Qualified Code(s): I10 - Essential (primary) hypertension (7) Chronic headache Qualifiers: Headache type: unspecified Qualified Code(s): R51 - Headache (9) Diabetes Qualifiers: Diabetes mellitus type: type 2 Diabetes mellitus senior care insulin use: with senior care use Diabetes mellitus complication status: with skin complications Diabetes mellitus complication detail: with foot ulcer Qualified Code(s): E11.621 - Type 2 diabetes mellitus with foot ulcer; L97.509 - Non-pressure chronic ulcer of other part of unspecified foot with unspecified severity; Z79.4 - manager long term care (current) use of insulin <Leo Wilson - Last Filed: 03/23/18 15:44> (1) Altered mental status, unspecified Qualifiers: Altered mental status type: disorientation Qualified Code(s): R41.0 - Disorientation, unspecified (2) Osteomyelitis Qualifiers: Osteomyelitis type: other acute Osteomyelitis location: foot Laterality: left Qualified Code(s): M86.172 - Other acute osteomyelitis, left ankle and foot (5) HTN (hypertension) Qualifiers: Hypertension type: essential hypertension Qualified Code(s): I10 - Essential (primary) hypertension (7) Chronic headache Qualifiers: Headache type: unspecified Qualified Code(s): R51 - Headache
[2018-03-23] MEDS: *HR* Morphine Sulfate SR (12 HR) 15 MG TABLET.ER PO SCH (08:47)
[2018-03-23] MEDS: Metoprolol XL (24 HR) Succ 25 MG TAB.ER.24H PO SCH (08:48)
[2018-03-23] MEDS: Furosemide 20 MG TABLET PO SCH (08:49)
[2018-03-23] MEDS: Aspirin Enteric Coated 81 MG Tablet PO SCH (08:49)
[2018-03-23] MEDS: Insulin DETEMIR 100 UNIT/ML X5UNITS SQ SCH ×2 (08:49→20:38)
[2018-03-23] MEDS: Gentamicin Oint 15 GM TUBE TP SCH (08:50)
--- NOTE | 2018-03-23 09:12 | Infectious Disease Progress No ---
Date of Encounter: 03/23/18 Time of Encounter: 09:09 - Assessment and Plan (1) Osteomyelitis Current Visit: Yes Status: Chronic Location: Left foot 5th metatarsal head and base of 5th proximal phalanx. Causative organism: MDRO Acinetobacter. Likely secondary to diabetic foot ulcer. X-ray showed findings consistent with osteomyelitis. ESR 70, CRP 12. [facility] Zosyn since 03/08/18 there. Was also originally on Vanc upon transfer there, but was discontinued upon arrival to the [facility]. Podiatry consulted. The patient has refused surgical intervention. No SIRS criteria. Blood cultures drawn 03/20/18 x 1 set are NGTD. I had a discussion with the patient this morning regarding the importance of source control when dealing with infections and the fact that he has a resistant bacteria growing makes it more important. He continues to refuse surgical intervention and has voiced to me that he does not want us to follow him in the outpatient setting and only wants the [facility] to manage his IV antibiotics. Recommendations: - Wound care per the Podiatry team's recommendations. - Given the causative organism, the patient would benefit from surgical resection. The patient has refused. - Send specimen for Colistin susceptibility.--> pending. - Continue Colistin 2.5mg/kg IV daily. - Duration of treatment depends on the clinical picture, but likely a total of 6-8 weeks. - I discussed the importance of adequate source control in regards to the success of treating his foot infection. He states the [facility] Retoucher told him there are other options before operating and continues to decline surgical intervention. - Monitor renal function and dose-adjust antibiotics. - Strict glucose control. - Repeat CBC and BMP daily while inpatient. Will need to monitor renal function closely while on Colistin. - Recommend weekly CBC, ESR, and CRP monitoring with 2x weekly renal function monitoring while on Colistin - No further recommendations from the ID team. We will sign off. Please re- consult if needed. Qualifiers: Osteomyelitis type: other acute Osteomyelitis location: foot Laterality: left Qualified Code(s): M86.172 - Other acute osteomyelitis, left ankle and foot (2) Acute kidney injury Current Visit: Yes Status: Acute Etiology unclear. Unsure of baseline. Improved. Continue to trend. Dose-adjust antibiotics and avoid nephrotoxins as able. (3) Altered mental status, unspecified Current Visit: Yes Status: Resolved Etiology unclear. Neurology consulted and signed off. MRI brain negative. Qualifiers: Altered mental status type: disorientation Qualified Code(s): R41.0 - Disorientation, unspecified (4) Frequent falls Current Visit: Yes Status: Acute Etiology unclear. Patient states ongoing for 20 years. Neurology consulted and signed off. CT head negative. MRI brain negative. (5) IDDM (insulin dependent diabetes mellitus) Current Visit: Yes Status: Chronic Recommend aggressive glucose monitoring and control to promote wound healing and prevent reinfection. Management per the primary team. - Subjective Interval history: Patient seen and examined sitting up in bed. No acute events noted overnight. Patient continues to complain of chronic headache and neck pain. Denies any weakness or dizziness or recent falls. Denies any chest pain, shortness of breath, or cough. Denies any nausea, vomiting, diarrhea, or constipation. Den ies abdominal pain or urinary complaints. Denies any oral thrush or new skin lesions. Denies any pain at the site of the left foot ulceration. Last BM was yesterday. Infect Dis PN-Objective Data - Labs CBC & Chem 7: 03/23/18 06:26 03/23/18 06:26 Labs: Laboratory Results - last 24 hr 03/21/18 03/21/18 03/22/18 11:13 16:07 09:18 WBC 5.6 RBC 3.69 L Hgb 10.7 L Hct 33.4 L MCV 90.5 MCH 29.0 MCHC 32.0 RDW 12.6 Plt Count 229 MPV 9.6 Immature Gran % 0.5 Seg Neutrophils % 53.0 Lymphocytes % 29.3 Monocytes % 10.9 Eosinophils % 5.4 Basophils % 0.9 Neutrophils # 3.0 Lymphocytes # 1.6 Monocytes # 0.6 Eosinophils # 0.3 Basophils # 0.1 Sodium Potassium Chloride Carbon Dioxide BUN Creatinine Est GFR ( Amer) Est GFR (Non-Af Amer) BUN/Creatinine Ratio Glucose POC Glucose 258 H 111 H Calculated Osmolality Calcium Magnesium 03/22/18 03/22/18 03/23/18 09:18 10:36 06:26 WBC 7.0 RBC 3.59 L Hgb 10.6 L Hct 33.0 L MCV 91.9 MCH 29.5 MCHC 32.1 RDW 12.6 Plt Count 244 MPV 9.9 Immature Gran % Seg Neutrophils % Lymphocytes % Monocytes % Eosinophils % Basophils % Neutrophils # Lymphocytes # Monocytes # Eosinophils # Basophils # Sodium 140 Potassium 5.0 Chloride 108 H Carbon Dioxide 26 BUN 24 H Creatinine 1.37 H Est GFR ( Amer) > 60 Est GFR (Non-Af Amer) 52 L BUN/Creatinine Ratio 18 Glucose 154 H POC Glucose 159 H Calculated Osmolality 297 Calcium 8.6 Magnesium 03/23/18 06:26 WBC RBC Hgb Hct MCV MCH MCHC RDW Plt Count MPV Immature Gran % Seg Neutrophils % Lymphocytes % Monocytes % Eosinophils % Basophils % Neutrophils # Lymphocytes # Monocytes # Eosinophils # Basophils # Sodium 139 Potassium 4.9 Chloride 109 H Carbon Dioxide 25 BUN 32 H Creatinine 1.46 H Est GFR ( Amer) 59 L Est GFR (Non-Af Amer) 49 L BUN/Creatinine Ratio 22 Glucose 133 H POC Glucose Calculated Osmolality 297 Calcium 9.1 Magnesium 1.6 Cultures: Cultures 03/20/18 04:10 Wound Culture - Preliminary Left Foot Acinetobacter baumannii MDRO 03/20/18 03:31 Blood Culture - Preliminary Peripheral Venipuncture Culture is incubating and being continuously monitored for growth. Final report to follow. Serology 03/20/18 Range/Units 03:53 Urine Color Yellow (Yellow) Urine Clarity Clear (Clear) Urine pH 7.0 (5.0-8.0) pH Units Ur Specific [place] 1.011 (1.010-1.025) Urine Protein 30 H (Neg-Trace) mg/dL Urine Glucose (UA) 100 H (Normal) mg/dL Urine Ketones Negative (Negative) mg/dL Urine Blood Negative (Negative) Urine Nitrite Negative (Negative) Urine Bilirubin Negative (Negative) Urine Urobilinogen Normal (Normal) mg/dL Ur Leukocyte Esterase Negative (Negative) Urine Microscopic RBC 0-3 (0-3) per hpf Urine Microscopic WBC 0-3 (0-3) per hpf Ur Squamous Epith Cells None Seen (None-Few) per lpf Urine Bacteria None Seen (None-Few) per hpf Hyaline Casts None Seen (None-Few) per lpf Ur Culture Indicated? NO (NO) Exam - Constitutional Vitals: Temp Pulse Resp BP Pulse Ox 97.9 F 71 17 146/62 96 03/23/18 06:52 03/23/18 06:52 03/23/18 08:02 03/23/18 06:52 03/23/18 08:02 General appearance: average body habitus, cooperative, no acute distress - Head Head exam: Present: atraumatic, normal inspection, normocephalic - Eye Eye exam: Present: EOMI, normal appearance, PERRL Pupils: Present: normal accommodation - ENT ENT exam: Present: mucous membranes moist - Neck Neck exam: Present: normal inspection - Respiratory Respiratory exam: Present: CTAB. Absent: rales, respiratory distress, rhonchi, wheezes - Cardiovascular Cardiovascular exam: Present: RRR, +S1, +S2, systolic murmur - GI/Abdominal GI/Abdominal exam: Present: normal bowel sounds, soft. Absent: distended, tenderness - Extremities Exam Extremities exam: Absent: normal inspection (Left foot ulceration with wound bed moist with yellow slough. No drainage or foul odor noted. No surrounding erythema, warmth, or fluctuance. Tenderness noted with palpation.) - Neurological Exam Neurological exam: Present: alert, oriented X3, no focal deficits - Psychiatric Psychiatric exam: Present: flat affect, normal mood - Skin Skin exam: Present: dry, intact, normal color, warm Consult Discharge Plan - Plan Additional Instructions: - Continue to be on the colistin 2.5 mg /kg IV daily -Strict glucose control because of history of diabetes - [facility]errals: [facility] [Primary Care Provider] - - Attending Attestation I examined this patient and my medical decision-making was reviewed with the Resident Physician. I agree with the documented findings, disposition and treatment plan as described except to the extent set forth below.
--- NOTE | 2018-03-23 13:57 | Physician Discharge Referral ---
ExtendedCare Referral Info Transfer To: [facility] - Diagnosis (1) Altered mental status, unspecified Priority: Secondary Status: Resolved (2) Osteomyelitis Priority: Primary Status: Chronic (3) IDDM (insulin dependent diabetes mellitus) Priority: Secondary Status: Chronic (4) Acute kidney injury superimposed on CKD Priority: Secondary Status: Chronic (5) HTN (hypertension) Priority: Secondary Status: Chronic (6) Frequent falls Priority: Secondary Status: Acute (7) Chronic headache Priority: Secondary Status: Chronic (8) Tobacco abuse Priority: Secondary Status: Chronic - Transfer Medications Home Medications: Albuterol Sulfate [Proair Hfa] 2 puff IH TID PRN 03/20/18 [History] Aloe Vera/Collagen [Aloe Maramec Cleansing Foam] 1 applic TP DAILY 03/20/18 [History] Atorvastatin [Lipitor] 20 mg PO HS 03/20/18 [History] BuPROPion [Wellbutrin] 100 mg PO DAILY 03/20/18 [History] Cholecalciferol (D-3) [Vitamin D] 1,000 unit PO DAILY 03/20/18 [History] Cyanocobalamin (B-12) [Vitamin B12] 1,000 mcg PO DAILY 03/20/18 [History] Furosemide [Lasix] 20 mg PO Q48H 03/20/18 [History] Gabapentin [Neurontin] 1,200 mg PO TID 03/20/18 [History] Insulin Glargine,Hum.rec.anlog [Lantus Solostar] 35 unit SQ HS 03/20/18 [History] Lisinopril [Zestril] 2.5 mg PO DAILY 03/20/18 [History] Metformin HCl [Glucophage] 1,000 mg PO BID 03/20/18 [History] Metoprolol Succinate 25 mg PO DAILY 03/20/18 [History] Morphine Sulfate [Arymo ER] 15 mg PO DAILY 03/20/18 [History] Morphine Sulfate [Arymo ER] 30 mg PO TID PRN 03/20/18 [History] Multivitamin [One Daily Essential] 1 each PO DAILY 03/20/18 [History] Potassium Chloride [Klor-Con 10] 10 meq PO Q48H 03/20/18 [History] Tiotropium [Spiriva] 2 puff IH QAM 03/20/18 [History] Allergies/Adverse Reactions: Allergy/AdvReac Type Severity Reaction Status Date / Time diazepam [From Valium] Allergy Hallucinati Verified 03/20/18 02:47 ng sertraline Allergy Hallucinati Verified 03/20/18 02:47 ng - Respiratory Orders Smoking Cessation: Smoking cessation has been advised. For more information, call the [place] Tobacco Quit Line at 1-071-EDNQ-NOW. CERTIFICATION: I certify that the transfer of the above named patient to an Extended Care Facility is necessary for the continuing treatment of the diagnosis listed. The above information is true and accurate reflection of patient's current condition. Confidential - Redisclosure prohibited without a patient's written consent.
[2018-03-24] MEDS: Colistin (Colistimethate) 150 MG in 0.9 % Sodium Chloride 50 ML IVPB SCH ×3 (00:18→23:47)
[2018-03-24] MEDS: *HR* Morphine Immed Rel 30 MG TABLET PO PRN ×2 (02:43→12:14)
[2018-03-24 03:12] LABS: Basophils # 0.1 K/mcL (0.0-0.2); Basophils % 0.6 %; Eosinophils # 0.4 K/mcL (0.0-0.6); Eosinophils % 4.8 %; Hematocrit 34.9 % (37.5-50.1); Hemoglobin 11.1 g/dL (12.9-16.9); Immature Granulocytes % 0.5 % (0-4); Lymphocytes # 2.3 K/mcL (0.6-4.6); Lymphocytes % 29.9 %; Mean Corpuscular HGB Conc 31.8 g/dL (31.6-35.5); Mean Corpuscular Volume 91.1 fL (83.0-100.0); Mean Platelet Volume 9.8 fL (9.4-12.4); Monocytes # 0.8 K/mcL (0.0-1.3); Monocytes % 10.3 %; Neutrophils # 4.2 K/mcL (1.6-8.9); Platelet Count 250 K/mcL (140-400); Red Blood Count 3.83 M/mcL (4.19-5.50); Red Cell Distribution Width 12.5 % (11.5-14.5); Segmented Neutrophils % 53.9 %
[2018-03-24 03:29] LABS: Calcium 9.2 mg/dL (8.6-10.3)
[2018-03-24] MEDS: *HR* Heparin 5,000 UNIT/ML VIAL SQ SCH ×2 (05:10→18:17)
[2018-03-24] MEDS: Insulin LISPRO 300 UNITS/3 ML VIAL SQ SCH ×3 (07:42→17:05)
[2018-03-24] MEDS: Tiotropium 18 MCG inhalation IH SCH (08:08)
[2018-03-24] MEDS: *HR* Morphine Sulfate SR (12 HR) 15 MG TABLET.ER PO SCH (08:48)
[2018-03-24] MEDS: Aspirin Enteric Coated 81 MG Tablet PO SCH (08:49)
[2018-03-24] MEDS: Insulin DETEMIR 100 UNIT/ML X5UNITS SQ SCH ×2 (08:49→21:28)
[2018-03-24] MEDS: Furosemide 20 MG TABLET PO SCH (08:49)
[2018-03-24] MEDS: Gentamicin Oint 15 GM TUBE TP SCH (08:49)
[2018-03-24] MEDS: Metoprolol XL (24 HR) Succ 25 MG TAB.ER.24H PO SCH (08:49)
--- NOTE | 2018-03-24 09:18 | Internal Med Progress Note ---
<Santiago Wilsonbh - Last Filed: 03/24/18 17:21> Hospitalist Progress Note - Encounter Date of Encounter: 03/24/18 Time of Encounter: 10:00 - Subjective Interval History: 03/24 No acute events overnight. [facility] and is endorsing headache that is not getting better. I tried to reassure the patient that his headache is secondary to his chronic history of sleep disorder doing more pain medication is not gone to saw the problem. I told patient to follow-up with the sleep doctor as an outpatient for further investigation. He continues to be of day 3 of Colistin. Patient's wound look clean without any serosangunous discharge. Patient continues to deny any surgery for his osteomyelitis. 03/23 Saw Mr. Lerner at the bedside this AM. Patient is afebrile, on day 2 of colistin for his osteomyelitis, cultures grew Acinetobator baumanni . He is impatient [facility] or further management of his osteomyelitis. Patient was again given an option for surgical debridement of his foot wound but he denied . - Exam Vitals: Temp Pulse Resp BP Pulse Ox 98.5 F 67 16 144/73 96 03/24/18 06:34 03/24/18 06:34 03/24/18 08:08 03/24/18 06:34 03/24/18 08:08 Exam: General: Patient is alert, oriented x4, in acute distress due to neck pain and back pain Head: chronic TALBERT, atraumatic, normocephalic, Eye: normal appearance, PERRL, no scleral icterus, no conjunctival injection ENT: mucous membranes moist, normal external ear exam Respiratory: Breath sounds are clear to auscultation bilaterally, no wheezing rales or crackles. Cardiovascular: RRR, normal s1 and s2, No rubs, gallops, or murmors. Abdomen: Bowel sounds present normoactive x-4 quadrants. Abdomen is soft, nondistended. No guarding or rebound. No organomegaly noted, Musculoskeletal: Left foot bandaged due to oteomyeltitis, Spontaneously moving all extremities. no edema, no calf tenderness Neuro: CN II-XII intact. Sensory and motor functions intact. Psych: Patient's affect is normal - Assessment and Plan (1) Altered mental status, unspecified Current Visit: Yes Status: Resolved Assessment and Plan: -We do not know what the cause of his AMS was when he came to the hospital, because [facility] did not send any records. Currently he is in A&O 3. His Head CT and MRI were negative for any hemorrhage or intracranial masses. No focal neurological deficits appreciated on examination. - Is currently awaiting placement from [facility] [place]. (2) Osteomyelitis Current Visit: Yes Status: Chronic Assessment and Plan: - Patient has Osteomyelitis of the left 5th metatarsal head . His wound cultures were positive for Acinetobacter Baumanni and is currently being treated with colistin day 2. - Currently endorses no acute pain in his foot. Patient is afebrile, WBC is 7. Had an ESR of 70 on admission. - Interlocker consulted recommended surgical intervention but patient refused. - On morphine 2mg/IV Q4HR PRN for pain control (3) IDDM (insulin dependent diabetes mellitus) Current Visit: Yes Status: Chronic Assessment and Plan: - Has a history of fall diabetes mellitus. He is currently on Levemir 10 units BID, on lispro on low-dose sliding scale -Most recent recent blood glucose 84 . Continue to monitor (4) Acute kidney injury superimposed on CKD Current Visit: Yes Status: Chronic Assessment and Plan: - Patient has a history of stage III CKD. GFR 50. He also has has an EMMIE since admission. EMMIE could be secondary to being started on colistin for his osteomyelitis - Continue to monitor (5) HTN (hypertension) Current Visit: Yes Status: Chronic Assessment and Plan: - Patient has a history of hypertension. - Currently is on home meds : Lasix 20 mg by mouth and metoprolol 25 mg PO (6) Frequent falls Current Visit: Yes Status: Acute Assessment and Plan: -Reason for frequent falls unclear, no records could be retrieved from the [facility]. His brain MRI and CT was unremarkable. B12 and folate were normal. -Neurology was seeing the patient and patient appreciated no focal neurological deficits -Continue to monitor (7) Chronic headache Current Visit: Yes Status: Chronic Assessment and Plan: - Patient has a history of chronic headache does been going on for the last 22 years (8) Tobacco abuse Current Visit: Yes Status: Chronic DVT Prophylaxis: On heparin 5000 units subcutaneous twice a day. - Time Spent with Patient Total time spent is greater than 50% in coordination of care (as documented) at patient's floor/unit and/or counseling patient: Internal Medicine: Result - Labs CBC & Chem 7: 03/24/18 02:53 03/24/18 02:53 Labs: Short CBC 03/24/18 Range/Units 02:53 WBC 7.8 (4.3-11.1) K/mcL Hgb 11.1 L (12.9-16.9) g/dL Hct 34.9 L (37.5-50.1) % Plt Count 250 (140-400) K/mcL Neutrophils # 4.2 (1.6-8.9) K/mcL BMP 03/24/18 02:53 Sodium 138 Potassium 5.0 Chloride 108 H Carbon Dioxide 24 BUN 31 H Creatinine 1.47 H Glucose 84 Calcium 9.2 - ABG Interpretation ABG results: PT/INR, D-dimer PT 11.8 Seconds (9.4-12.1) 03/20/18 03:31 Consult Discharge Plan - Plan Additional Instructions: - Continue to be on the colistin 2.5 mg /kg IV daily -Strict glucose control because of history of diabetes - [facility]errals: [facility]Primary Care Provider[facility] - <Shade Camarillo - Last Filed: 03/24/18 17:45> Hospitalist Progress Note - Encounter Date of Encounter: 03/24/18 - Exam Vitals: Temp Pulse Resp BP Pulse Ox 98.2 F 69 16 147/66 97 03/24/18 14:08 03/24/18 14:08 03/24/18 14:08 03/24/18 14:08 03/24/18 14:08 - Assessment and Plan (1) Altered mental status, unspecified Current Visit: Yes Status: Resolved (2) Osteomyelitis Current Visit: Yes Status: Chronic (3) IDDM (insulin dependent diabetes mellitus) Current Visit: Yes Status: Chronic (4) Acute kidney injury superimposed on CKD Current Visit: Yes Status: Chronic (5) HTN (hypertension) Current Visit: Yes Status: Chronic (6) Frequent falls Current Visit: Yes Status: Acute (7) Chronic headache Current Visit: Yes Status: Chronic (8) Tobacco abuse Current Visit: Yes Status: Chronic (9) Diabetes Current Visit: Yes Status: Chronic - Time Spent with Patient Total time spent is greater than 50% in coordination of care (as documented) at patient's floor/unit and/or counseling patient: Internal Medicine: Result - Labs CBC & Chem 7: 03/24/18 02:53 03/24/18 02:53 Labs: Short CBC 03/24/18 Range/Units 02:53 WBC 7.8 (4.3-11.1) K/mcL Hgb 11.1 L (12.9-16.9) g/dL Hct 34.9 L (37.5-50.1) % Plt Count 250 (140-400) K/mcL Neutrophils # 4.2 (1.6-8.9) K/mcL BMP 03/24/18 02:53 Sodium 138 Potassium 5.0 Chloride 108 H Carbon Dioxide 24 BUN 31 H Creatinine 1.47 H Glucose 84 Calcium 9.2 - ABG Interpretation ABG results: PT/INR, D-dimer PT 11.8 Seconds (9.4-12.1) 03/20/18 03:31 - Attending Attestation I examined this patient and my medical decision-making was reviewed with the Resident Physician on 03/24/18. I agree with the documented findings, disposition and treatment plan as described except to the extent set forth below. Mr Lerner is currently admitted for acute osteomyelitis of foot with culture positive for Acinetobacter MDR. He remains moderate to high risk due to potential for worsening clinical status. Mr Lerner is doing OK. He has been accepted to [place] tomorrow. No fever or chills. Tolerating Colistin. No GI issues. Exam alert Comfortable Mucus membranes dry Heart not tachy No wheeze abd soft Dressing intact I/P 1. OM 2. MDR Acinetobacter 3. DM Further diagnoses and plan as above. <Leo Wilson - Last Filed: 03/24/18 17:21> (1) Altered mental status, unspecified Qualifiers: Altered mental status type: disorientation Qualified Code(s): R41.0 - Disorientation, unspecified (2) Osteomyelitis Qualifiers: Osteomyelitis type: other acute Osteomyelitis location: foot Laterality: left Qualified Code(s): M86.172 - Other acute osteomyelitis, left ankle and foot (5) HTN (hypertension) Qualifiers: Hypertension type: essential hypertension Qualified Code(s): I10 - Essential (primary) hypertension (7) Chronic headache Qualifiers: Headache type: unspecified Qualified Code(s): R51 - Headache <Shade Camarillo - Last Filed: 03/24/18 17:45> (1) Altered mental status, unspecified Qualifiers: Altered mental status type: disorientation Qualified Code(s): R41.0 - Disorientation, unspecified (2) Osteomyelitis Qualifiers: Osteomyelitis type: other acute Osteomyelitis location: foot Laterality: left Qualified Code(s): M86.172 - Other acute osteomyelitis, left ankle and foot (5) HTN (hypertension) Qualifiers: Hypertension type: essential hypertension Qualified Code(s): I10 - Essential (primary) hypertension (7) Chronic headache Qualifiers: Headache type: unspecified Qualified Code(s): R51 - Headache (9) Diabetes Qualifiers: Diabetes mellitus type: type 2 Diabetes mellitus liner helper insulin use: with liner helper use Diabetes mellitus complication status: with skin complications Diabetes mellitus complication detail: with foot ulcer Qualified Code(s): E11.621 - Type 2 diabetes mellitus with foot ulcer; L97.509 - Non-pressure chronic ulcer of other part of unspecified foot with unspecified severity; Z79.4 - prison (current) use of insulin
[2018-03-24 11:44] LABS: Estimated Average Glucose 157
[2018-03-24 11:45] LABS: Hemoglobin A1C 7.1
[2018-03-25 04:25] VITALS: BP 138/76
[2018-03-25] MEDS: *HR* Morphine Immed Rel 30 MG TABLET PO PRN (04:59)
[2018-03-25] MEDS: *HR* Heparin 5,000 UNIT/ML VIAL SQ SCH (04:59)
[2018-03-25 05:58] LABS: Calcium 9.4 mg/dL (8.6-10.3); Potassium 4.6 mEq/L (3.5-5.1)
[2018-03-25] MEDS: Tiotropium 18 MCG inhalation IH SCH (07:49)
== END 2018-03-25 08:24 | disposition short-term general hospital (02) | DRG 548 ==
LOC: EMEROOARM 02:38 → 3NENU 02:38 → SUATTDRO 05:55
PROVIDERS: ADMIT Family Medicine; ATTEND Internal Medicine